=== PATIENT | male | born 1945 | race American Indian/Alaskan Native ===

== ENCOUNTER 2017-08-09 09:05 | Day surgery (SDC) | payer MEDICARE, OTHER ==
[~2017-08-09] VITALS: Ht 170.2 cm; Wt 113.4 kg
[~2017-08-09 09:05] MED LIST: ALLOPURINOL300 MG PO; ASPIRIN325 MG PO; CARVEDILOL6.25 MG PO; CLARITIN10 M2 PO; CLONIDINE HCL0.1 MG PO; CLOPIDOGREL75 MG PO; DERMAFIX113 GM TP; ERGOCALCIF50000 UNIT PO; FEOSOL325 MG PO; FISH OIL 1,2001 EACH PO; FLOMAX0.4 MG PO; JANUVIA50 MG PO; LASIX40 MG PO; LIPITOR80 MG GT; LOSARTAN POTAS100 MG PO; MECLIZINE HCL25 MG PO; NEPHRO-VITE RX1 EACH PO; NIFEDIAC CC90 MG PO; NORCO 5-325 TA1 EACH PO; PANTOPRAZOLE SO40 MG PO; PRILOSEC20 MG PO; RENVELA800 MG PO; SODIUM BICARBO650 MG PO; VITAMIN D32000 UNI1 PO
--- NOTE | 2017-08-09 12:12 | NUR ---
08/09/17 Claudia2 Juliane Asif 1212 REPORT TO GERALDO.
--- NOTE | 2017-08-10 10:53 | OR ---
[facility] [address] [place], [place] [address] Signed DATE OF OPERATION: 08/09/2017 SURGEON: Julieta Hand MD PREOPERATIVE DIAGNOSES: 1. Personal history of Helicobacter pylori-associated gastritis. 2. History of colonic polyps. 3. History of melena, on iron tablets. 4. History of chronic diarrhea, on dialysis. 5. Diverticulosis. 6. Internal hemorrhoids. POSTOPERATIVE DIAGNOSES: 1. Mild gastritis. 2. A 3 mm and 7 mm polyps, proximal right colon. 3. Minimal sigmoid diverticulosis. 4. Moderate internal hemorrhoids. 5. A small indurated prostate gland with a left-sided nodule. PROCEDURES: 1. EGD with CLOtest and biopsies of the duodenum and antrum. 2. Colonoscopy with hot biopsy. ESTIMATED BLOOD LOSS: None. INDICATIONS: Uday is a 72-year-old, obese, diabetic gentleman, who goes to hemodialysis on Mondays, Wednesdays, and Fridays. We saw him in 2012 for his upper and lower endoscopy. He had H. pylori-associated gastritis with a small amount of ulceration. He also had adenomatous polyp in his distal right colon. He talks about melena, but he does take iron tablets. He also has chronic diarrhea. We know he has a little diverticulosis as well as internal hemorrhoids. There is no family history of colon cancer or polyps. He is quite debilitated. He is an ASA 4. He is obese with a heavy full thick neck and significant medical issues as listed in his history and physical. Consequently, we used an anesthesia provider with propofol on our last occasion and we plan on doing that again today. I had met with Uday in the office and I gave him a pamphlet on both upper and lower endoscopy. We reviewed those together and he understands the nature of the 2 tests along with the risks including, but not limited to, gas bloating, crampy abdominal pain, bleeding, perforation, requiring surgery, and missed diagnosis. We also Electronically Signed By: JULIETA HAND MD 08/10/17 1053 PATIENT NAME: UADY ESTES OPERATIVE REPORT DATE OF : 49 PHYSICIAN: JULIETA HAND MD REPORT #: [id number] REPORT IS CONFIDENTIAL AND NOT TO BE RELEASED WITHOUT AUTHORIZATION [address] [address] Signed reviewed the written instructions for the bowel prep, specifically with respect to his medications including his aspirin, Plavix, and diabetic medications. We also reminded him that we would be using an anesthesia provider given his complex medical history. He had expressed understanding and wished to proceed. PROCEDURE NOTE: Uday was taken into our endoscopy suite and placed in a supine semi-recumbent position. He was given IV sedation with propofol per our nurse machine shorthand teacher. The posterior oropharynx was anesthetized with Hurricaine spray. A bite block was utilized for the case. The adult gastroscope was then introduced and advanced out into the third portion of the duodenum under direct visualization of camera without difficulty. We took a duodenal biopsy because the history of diarrhea. In the stomach, he had very mild erythematous changes, so we went ahead and took a biopsy from the antrum as well as for pathologic review as well as for CLOtest. Upon retroflexion of the scope, I did not see a hiatal hernia. There was no gastric or esophageal varices, no ulcerations. The scope was withdrawn up through the area of GE junction, which was compliant without stricture. Very minimal disruption to the Z-line. No Ziegler's mucosa, no distal esophagitis. The middle and upper esophagus were unremarkable. After this, the gas was suctioned out and the gastroscope removed. Uday tolerated the procedure quite well. Uday was then rotated into the left lateral decubitus position. He was maintained on IV sedation with propofol per nurse machine shorthand teacher. A digital rectal exam was performed and he does have a small, but indurated prostate gland. He has a fairly prominent nodule on the left and maybe one superiorly on the right, much smaller on the right. The adult colonoscope was then introduced and advanced up into the cecum under direct visualization of camera without difficulty. His prep was moderate. He had a few areas of liquid particulate stool matter. I could not quite irrigate and suction out completely. We did see the appendiceal orifice in the cecum along with the ileocecal valve. The scope was then slowly withdrawn. He had 2 polyps in the proximal right colon, which we removed with hot biopsy forceps. Then in the sigmoid colon, he had just a few diverticula. They were moderate in size, few in number and scattered about. The rectum was unremarkable. Upon retroflexion of the scope, he has moderate internal hemorrhoid columns. After this, the gas was suctioned out and the colonoscope removed. Uday tolerated the procedure quite well. RECOMMENDATIONS: I will see Uday in my office in a week or 2 for followup. He might review his prostate history and exam with his primary care provider. Electronically Signed By: JULIETA HAND MD 08/10/17 1053 PATIENT NAME: UDAY ESTES OPERATIVE REPORT DATE OF : 49 PHYSICIAN: JULIETA HAND MD REPORT #: [id number] REPORT IS CONFIDENTIAL AND NOT TO BE RELEASED WITHOUT AUTHORIZATION [facility] [address] [address] Signed Julieta Hand MD [facility] /[id number] cc: SEBASTIAN Roy MD Jennifer Leach, MD Saad Tabbara, MD Andrew L Bower, MD Electronically Signed By: JULIETA HAND MD 08/10/17 1053 PATIENT NAME: UDAY ESTES OPERATIVE REPORT DATE OF : 49 PHYSICIAN: JULIETA HAND MD REPORT #: [id number] REPORT IS CONFIDENTIAL AND NOT TO BE RELEASED WITHOUT AUTHORIZATION
== END 2017-08-09 18:00 | disposition home or self-care (01) ==
LOC: DS 09:05
PROVIDERS: Colon & Rectal Surgery
PROC: 0DBK8ZX Excision of Ascending Colon, Via Natural or Artificial Opening Endoscopic, Diagnostic (ICD-10-PCS; 2017-08-09)
PROC: 0DB98ZX Excision of Duodenum, Via Natural or Artificial Opening Endoscopic, Diagnostic (ICD-10-PCS; principal; 2017-08-09 11:15)
PROC: 0DB78ZX Excision of Stomach, Pylorus, Via Natural or Artificial Opening Endoscopic, Diagnostic (ICD-10-PCS; 2017-08-09 11:15)
DX: D12.2 Benign neoplasm of ascending colon (principal); K29.50 Unspecified chronic gastritis without bleeding; K63.89 Other specified diseases of intestine; K57.30 Diverticulosis of large intestine without perforation or abscess without bleeding; N42.89 Other specified disorders of prostate; I25.119 Atherosclerotic heart disease of native coronary artery with unspecified angina pectoris; I10 Essential (primary) hypertension; K80.20 Calculus of gallbladder without cholecystitis without obstruction; K52.9 Noninfective gastroenteritis and colitis, unspecified; N19 Unspecified kidney failure; E11.51 Type 2 diabetes mellitus with diabetic peripheral angiopathy without gangrene; I83.009 Varicose veins of unspecified lower extremity with ulcer of unspecified site; L97.909 Non-pressure chronic ulcer of unspecified part of unspecified lower leg with unspecified severity; M17.9 Osteoarthritis of knee, unspecified; M10.9 Gout, unspecified; Z98.890 Other specified postprocedural states; Z95.5 Presence of coronary angioplasty implant and graft; Z98.42 Cataract extraction status, left eye; Z98.41 Cataract extraction status, right eye; Z88.1 Allergy status to other antibiotic agents; Z88.2 Allergy status to sulfonamides; Z88.8 Allergy status to other drugs, medicaments and biological substances; Z79.82 Long term (current) use of aspirin; Z79.899 Other long term (current) drug therapy
CPT/HCPCS: 86677; 88305; J2704; J7120

== ENCOUNTER 2017-10-11 22:27 | Emergency (ER) | payer MEDICARE, OTHER ==
[~2017-10-11] VITALS: Ht 170.2 cm; Wt 111.1 kg
[2017-10-11] MEDS ORDERED: CEPHALEXIN500 MG PO (23:03)
--- OUTSIDE RECORDS SUMMARY | 2017-10-11 23:10 | XMS | Clinical Summary ---
Demographics + + + | Address | [address] | | | [place] [address] | + + + | Home Phone | | + + + | Preferred Language | Unknown | + + + | Marital Status | Single | + + + | Episcopalian Affiliation | Unknown | + + + | Race | or | + + + | Ethnic Group | Not or | + + + Author + + + | Author | [facility] | + + + | Organization | [facility] | + + + | Address | Unknown | + + + | Phone | Unavailable | + + + Support + + +---------+ + | Name | Relationship | Address | Phone | + + +---------+ + | Evan Webber | DIVYA | Unknown | | + + +---------+ + Care Team Providers + +------+ + | Care Profiler Name | Role | Phone | + +------+ + PP | Unavailable | + +------+ + Source Comments [facility] and [facility] Allergies Not on File Current Medications Not on file Active Problems + + + | Problem | Noted Date | + + + | Proteinuria | 03/27/2008 | + + + Social History + +-------+ +--------+------+ | Tobacco Use | Types | Packs/Day | Years | Date | | | | | Used | | + +-------+ +--------+------+ | Never Assessed | | | | | + +-------+ +--------+------+ + + + | Sex Assigned at | Date Recorded | | | | + + + | Not on file | | + + + Plan of Treatment + + + + + | Health Maintenance | Due Date | Last Done | Comments | + + + + + | INFLUENZA VACCINE | | | | | (FLU SHOT) | 8 | | | + + + + + Results Not on filefrom Last 3 Months"
--- OUTSIDE RECORDS SUMMARY | 2017-10-11 23:10 | XMS | Clinical Summary ---
Demographics + + + | Address | [address] | | | [place] [address] | + + + | Home Phone | | + + + | Preferred Language | Unknown | + + + | Marital Status | Single | + + + | Roman Catholic Affiliation | 1041 | + + + | Race | Unknown | + + + | Ethnic Group | Unknown | + + + Author + + + | Author | [facility] | | | and [place] | + + + | Organization | [facility] | | | and [place] | + + + | Address | Unknown | + + + | Phone | Unavailable | + + + Support + + + + + | Name | Relationship | Address | Phone | + + + + + | Chilo Estes | [place] | [place] | | | | | [address] | | + + + + + Care Team Providers + +------+ + | Care Batt Machine Operator Name | Role | Phone | + +------+ + | Terry Lema PA-C | PP | | + +------+ + Allergies + + + + + + | Active Allergy | Reactions | Severity | Noted | Comments | | | | | Date | | + + + + + + | Amlodipine Besylate | | | | Patient doesn't | | | | | | recall | + + + + + + | Bactrim | Other (See Comments) | | 10/26/19 | Patient doesn't | | | | | 12 | recall | + + + + + + | Irbesartan | Other (See Comments) | | 10/26/19 | Patient doesn't | | | | | 12 | recall | + + + + + + | Isosorbide | Other (See Comments) | | 12/28/19 | Patient doesn't | | Mononitrate | | | 12 | recall | + + + + + + | Pseudoephedrine | Other (See Comments) | | | Made him faint | + + + + + + | Spironolactone | Other (See Comments) | | | Patient doesn't | | | | | | recall | + + + + + + | Telmisartan | Other (See Comments) | | | Patient doesn't | | | | | | recall | + + + + + + Current Medications + + +---------+---------+------+------+-------+ | Prescription | Sig. | Disp. | Refills | Star | End | Statu | | | | | | t | Date | s | | | | | | Date | | | + + +---------+---------+------+------+-------+ | fish oil 1,000 mg | Take 1,000 mg by | | | | | Activ | | capsule | mouth 2 times daily. | | | | | e | + + +---------+---------+------+------+-------+ | omeprazole | Take 20 mg by mouth | | | | | Activ | | (PRILOSEC) 20 mg | every morning | | | | | e | | capsule | (before breakfast). | | | | | | + + +---------+---------+------+------+-------+ | sitaGLIPtin | Take 1 tablet by | 120 | | 11/2 | | Activ | | (JANUVIA) 25 mg | mouth Daily. | tablet | | 0/20 | | e | | tablet | | | | 15 | | | + + +---------+---------+------+------+-------+ | doxercalciferol | Inject 7.5 mcg into | | | 05/0 | | Activ | | (HECTOROL) 2 mcg/mL | the vein Three times | | | 9/20 | | e | | injection | a week. | | | 16 | | | + + +---------+---------+------+------+-------+ | tamsulosin | Take 1 capsule by | 90 | 3 | 09/0 | | Activ | | (FLOMAX) 0.4 mg CAPS | mouth daily (after | capsule | | 8/20 | | e | | | breakfast). | | | 16 | | | + + +---------+---------+------+------+-------+ | cholecalciferol | Take 1 tablet by | 30 | | 01/1 | | Activ | | (VITAMIN D-3) 2000 | mouth Daily. | tablet | | 3/20 | | e | | UNITS TABS | | | | 17 | | | + + +---------+---------+------+------+-------+ | furosemide (LASIX) | Take 2 tablets by | 30 | | 01/1 | | Activ | | 80 mg tablet | mouth every morning. | tablet | | 3/20 | | e | | | | | | 17 | | | + + +---------+---------+------+------+-------+ | allopurinol | Take 300 mg by mouth | | | 11/0 | | Activ | | (ZYLOPRIM) 300 mg | Daily. | | | 03/23 | | e | | tablet | | | | 16 | | | + + +---------+---------+------+------+-------+ | cadexomer iodine | Apply topically | | | | | Activ | | (IODOSORB) 0.9 % gel | Daily as needed for | | | | | e | | | Wound Care. | | | | | | + + +---------+---------+------+------+-------+ | Chlorhexidine | Apply topically. | | | | | Activ | | Gluconate 4 % SOLN | | | | | | e | + + +---------+---------+------+------+-------+ | carvedilol (COREG) | Take 1 tablet by | 60 | 5 | 04/ | | Activ | | 25 mg tablet | mouth 2 times daily | tablet | | 02/20 | | e | | | (with breakfast & | | | 17 | | | | | dinner). | | | | | | + + +---------+---------+------+------+-------+ | atorvaSTATin | Take 0.5 tablets by | 45 | 3 | 05/1 | | Activ | | (LIPITOR) 80 MG | mouth Daily. | tablet | | 6/20 | | e | | tablet | | | | 17 | | | + + +---------+---------+------+------+-------+ | clopidogrel | Take 1 tablet by | 90 | 3 | 05/1 | | Activ | | (PLAVIX) 75 mg | mouth Daily. | tablet | | 6/20 | | e | | tablet | | | | 17 | | | + + +---------+---------+------+------+-------+ | losartan (COZAAR) | Take 1 tablet by | 90 | 3 | 05/2 | | Activ | | 100 MG tablet | mouth Daily. | tablet | | 5/20 | | e | | | | | | 17 | | | + + +---------+---------+------+------+-------+ | b complex-vitamin | Take 1 tablet by | 30 | 11 | 06/2 | | Activ | | c-folic acid | mouth Daily. | tablet | | 0/20 | | e | | (NEPHRO-CLARISSA) tablet | | | | 17 | | | + + +---------+---------+------+------+-------+ | AURYXIA 1 GM 210 | | | | 11/2 | | Activ | | MG(Fe) tablet | | | | 1/20 | | e | | | | | | 17 | | | + + +---------+---------+------+------+-------+ | pantoprazole | | | | 11/0 | | Activ | | (PROTONIX) 40 mg | | | | 6/20 | | e | | tablet | | | | 17 | | | + + +---------+---------+------+------+-------+ | epoetin miracle | Inject 4,400 Units | | | | | Activ | | (EPOGEN,PROCRIT) | under the skin Three | | | | | e | | 3,000 units/mL | times a week. | | | | | | | injection | | | | | | | + + +---------+---------+------+------+-------+ Active Problems + + + | Problem | Noted Date | + + + | End stage renal disease ([facility]) | 02/11/2016 | + + + | DM foot ulcers ([facility]) | 02/11/2016 | + + + | Hyperkalemia | 01/30/2015 | + + + | Right nephrolithiasis | 01/29/2015 | + + + + + | Last Assessment & Plan: Continues to have symptoms, unchanged | | since last night. Discussed with Dr. Hollis, who recommended | | gentle fluids (gave a total of 500 mL this morning) and | | tamsulosin to help the stone pass. Given his minimal chronic | | urine output, not clear that the stone will pass, and will plan | | to reassess if no improvement by tomorrow. No evidence of acute | | infection. | + + + + + | Diabetic foot ulcer (HCC) | 07/19/2014 | + + + + + | Last Assessment & Plan: Appear chronic, but does need to care | | for them better given his diabetic neuropathy. Wound care | | consult today. | + + + + + | Essential hypertension with goal blood pressure less than 130/80 | 05/21/2013 | + + + | End stage renal disease (HCC) | 04/26/2013 | + + + + + | Overview: ESRD due to diabetic nephropathy. On hemodialysis. | | Access: Left brachial-cephalic AVF. Last Assessment & Plan: HD | | today for chronic ESRD. Hyperkalemic at 6.0, getting 2 K+ bath | | today. | | Last Assessment & Plan: HD today for chronic ESRD. Hyperkalemic at 6.0, getting 2 K+ b ath today. | + + + + + | Coronary artery disease involving seneca coronary artery of | 04/26/2013 | | seneca heart without angina pectoris | | + + + + + | Overview: History of PTCA x 2 stents. Stress test 08/12/2016 | | shows persantine EKG is negative, abnormal persantine sestamibi | | myocardial perfusion study with a medium to large size, fixed | | defect of a mid anterior, distal anterolateral, apex and the | | entire inferior wall, this suggests a medium to large size | | myocardial scar of the dominant RCA and mid LAD territories, | | gated SPECT reveals a thinning and akinesis of the entire | | inferior wall and anteroapical, left ventricular systolic | | function is moderately decreased, LVEF by gated SPECT is 43 %. | + + + + + | SECONDARY HYPERPARATHYROIDISM | 10/26/2011 | + + + | ANEMIA IN CHRONIC KIDNEY DISEASE | 10/26/2011 | + + + + + | Overview: ICD-10 Record update | | Last Assessment & Plan: Usual care. | + + + + + | HYPERPLASIA PROSTATE UNS W/UR OBST and LARISA LUTS | 08/05/2011 | + + + | DM type 2 (diabetes mellitus, type 2) ([facility]) | | + + + + + | Last Assessment & Plan: Continue sitagliptin, sliding scale. | | <150 thus far. | + + + +---+ | AVIS (obstructive sleep apnea) | | + +---+ + + | Last Assessment & Plan: Per history. | + + +------+---+ | Gout | | +------+---+ + + | Last Assessment & Plan: On full dose allopurinol. | + + + +---+ | Diabetic peripheral neuropathy (HCC) | | + +---+ | Diabetic retinopathy (HCC) | | + +---+ | GERD (gastroesophageal reflux disease) | | + +---+ + + | Last Assessment & Plan: History on PPI. | + + + +---+ | Congestive heart failure (HCC) | | + +---+ + + | Overview: Echocardiogram 09/08/17 shows Left ventricle is | | normal in size with systolic function appearing at the lower | | limit of normal. There is suboptimal endocardial resolution and | | poor echocardiographic windows, especially apically and | | subcostal. There is mildconcentric LVH noted. LVEF is estimated | | in the range of 50-55%. Structurally normal tricuspid valve with | | moderate insufficiency and peak velocity consistent with RVSP | | 64-69 mmHg. Biatrial enlargement, left greater than right. | | Compared with patient's prior study of 2016, pulmonary pressures | | are estimated slightly higher, otherwise no significant changes | | are noted.Echocardiogram 09/16/2015 shows mildly dilated left | | ventricle with mild concentric left ventricular hypertrophy with | | mild systolic dysfunction with ejection fraction probably around | | 40%-45%, definity contrast may be considered for better | | evaluation of the left ventricular function and wall motion | | abnormalities, mildly dilated aorta to 40 mm . Jimmy Lewis | | MD BookerEchocardiogram 08/10/2016 shows mild left atrial | | dilatation, normal left ventricular size with a mild concentric | | left ventricular hypertrophy, left ventricular systolic function | | is low-normal. LVEF is 50-55%, grade 1 left ventricular diastolic | | dysfunction, mild mitral valve regurgitation, mild aortic valve | | insufficiency, [id number] tricuspid valve regurgitation, | | moderate pulmonary hypertension with a peak systolic pressure of | | 50-55 mmHg, mild aortic root dilatation measuring 4.2 cm in | | diameter, normal IVC with less than 50% collapse. Last | | Assessment & Plan: Monitor fluid balance closely. | + + Resolved Problems + + + + | Problem | Noted | Resolved | | | Date | Date | + + + + | Fever | 02/11/20 | | | | 16 | 7 | + + + + | SIRS (systemic inflammatory response syndrome) (HCC) | 02/11/20 | | | | 16 | 7 | + + + + | CAD | 08/24/19 | | | | 12 | 3 | + + + + | Hypertension | | | | | | 3 | + + + + | CHRONIC KIDNEY DISEASE STAGE IV (SEVERE) | | | | | | 3 | + + + + Encounters +--------+ + + + + | Date | Type | Specialty | Care Team | Description | +--------+ + + + + | 09/15/ | Office | | Isidra, | Chronic systolic | | 2017 | Visit | | JOE Lynch | congestive heart | | | | | | failure (HCC) | | | | | | (Primary Dx); | | | | | | Coronary artery | | | | | | disease involving | | | | | | seneca coronary | | | | | | artery of seneca | | | | | | heart without angina | | | | | | pectoris; Essential | | | | | | hypertension with | | | | | | goal blood pressure | | | | | | less than 130/80 | +--------+ + + + + | 09/08/ | Hospital | | Isidra, | Chronic systolic | | 2018 | Encounter | | JOE Lynch | congestive heart | | | | | Alejandro Troncoso, | failure (HCC) | | | | | Technologist | | +--------+ + + + + | 09/02/ | Telephone | | Isidra | [place] | | 2017 | | | JOE Lynch | | +--------+ + + + + | 08/29/ | Documentati | | Luciana Yoder | | | 2017 | on | | M, DO | | +--------+ + + + + | 08/10/ | Abstract | | Luciana Yoder | | | 2017 | | | M, DO | | +--------+ + + + + | 08/02/ | Ancillary | | Provider, | | | 2018 | Orders | | MD Jonas | | +--------+ + + + + from Last 3 Months Family History + + +------+ + | Medical History | Relation | Name | Comments | + + +------+ + | Diabetes | Father | 70 | | + + +------+ + | Diabetes | Sister | | | + + +------+ + + +------+ + + | Relation | Name | Status | Comments | + +------+ + + | Father | 70 | | | + +------+ + + | Mother | 74 | | | + +------+ + + | Sister | | | | + +------+ + + Social History + + + +--------+------+ | Tobacco Use | Types | Packs/Day | Years | Date | | | | | Used | | + + + +--------+------+ | Never Smoker | Cigarettes | | | | + + + +--------+------+ + +---+---+---+ | Smokeless Tobacco: | | | | | Never Used | | | | + +---+---+---+ + + +---------+ + | Alcohol Use | Drinks/We | oz/Week | Comments | | | ek | | | + + +---------+ + | No | 0 | 0.0 | | | | Standard | | | | | drinks or | | | | | | | | | | equivalen | | | | | t | | | + + +---------+ + + + + | Sex Assigned at | Date Recorded | | | | + + + | Not on file | | + + + Last Filed Vital Signs + + + + | Vital Sign | Reading | Time Taken | + + + + | Blood Pressure | 160/70 | 09/15/2017946 PDT | + + + + | Pulse | 60 | 09/15/2017946 PDT | + + + + | Temperature | 36.2 C (97.2 F) | 08/29/2017 1555 PST | + + + + | Respiratory Rate | 12 | 09/15/2017946 PDT | + + + + | Oxygen Saturation | 96% | 02/11/2016 1515 PDT | + + + + | Inhaled Oxygen | - | - | | Concentration | | | + + + + | Weight | 113.5 kg (250 lb 3.6 | 09/15/2017946 PDT | | | oz) | | + + + + | Height | 170.2 cm (5' 7") | 09/15/2017946 PDT | + + + + | Body Mass Index | 39.19 | 09/15/2017946 PDT | + + + + Plan of Treatment +--------+---------+ + + + | Date | Type | Specialty | Care Team | Description | +--------+---------+ + + + | 03/21/ | Office | | Isidra, | | | 2017 | Visit | | JOE Lynch [address] | | | | | | [place], | | | | | | [place] [address] | | | | | | [phone] | | | | | | | | +--------+---------+ + + + + + + + + | Health Maintenance | Due Date | Last Done | Comments | + + + + + | Hepatitis C | | | | | Screening | 7 | | | + + + + + | Diabetic Eye Exam | | | | | (Annually) | 5 | | | + + + + + | Diabetic Foot Exam | | | | | | 5 | | | + + + + + | Vaccine: | | | | | Dtap/Tdap/Td (1 - | 6 | | | | Tdap) | | | | + + + + + | COLON CANCER | | | | | SCREENING | 7 | | | | (COLONOSCOPY EVERY | | | | | 10 YEARS 50-75) | | | | + + + + + | Vaccine: Zoster (#1) | | | | | | 7 | | | + + + + + | Vaccine: | | | | | Pneumococcal 65+ | 2 | | | | High/Highest Risk (1 | | | | | of 2 - PCV13) | | | | + + + + + | Hemoglobin A1c Q3 | | 01/01/2013, 07/01/2012 | | | Months | 3 | | | + + + + + | Vaccine: Influenza | | | | | (Season Ended) | 8 | | | + + + + + Procedures + +--------+ + + + | Procedure Name | Priori | Date/Time | Associated Diagnosis | Comments | | | ty | | | | + +--------+ + + + | DIAGNOSTIC REPORT - | | 08/09/2017 | | Results for this | | EXTERNAL SCAN | | 0000 PST | | procedure are in the | | | | | | results section. | + +--------+ + + + from Last 3 Months Results ECHO Complete (09/08/2017 1027) + +-------+ + | Component | Value | Ref Range | + +-------+ + | LVEF-TTE | 35 | | | TRANSTHORACIC ECHO | | | + +-------+ + + + | Narrative | + + | Transthoracic Echocardiography Report (TTE) Demographics Patient | | Name AKBAR FRYE Room Number [place] | | Patient [id number] Date of Study 09/08/2017 | | Number Visit Number [id number] Accession | | [id number] Referring Physician DANIEL LYNCH Number Date of | | 1945 [employer] [place] | | Age 72 | | year(s) Interpreting DOLLY BILLS | | | | Digital Content Manager ALEXEI | | | | ALEXEI ALBERTO MD | | 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 Procedure date | | Date: 09/08/2017Start: 09:55 AM Technical Quality: Limited visualizationStudy | | Location: Echo Lab Indications: Heart Failure, Chronic Systolic 428.22/I50.22. Patient | | Status: Routine Height: 67 inchesWeight: 246 poundsBSA: 2.21 m^2BMI: 38.53 kg/m^2 | | Rhythm: Normal Sinus RhythmHR: 72 bpm Conclusions Summary Left ventricle is normal | | in size with systolic function appearing at the lower limit of normal. There is | | suboptimal endocardial resolution and poor echocardiographic windows, especially | | apically and subcostal. There is mild concentric LVH noted. LVEF is estimated in the | | range of 50-55%. Structurally normal tricuspid valve with moderate insufficiency and | | peak velocity consistent with RVSP 64-69 mmHg. Biatrial enlargement, left greater than | | right. Compared with patient's prior study of 2016, pulmonary pressures are estimated | | slightly higher. Otherwise no significant changes are noted. Signature | | | | | | PM | | Findings Mitral Valve Mitral valve is mildly thickened without significant | | insufficiency. Aortic Valve Aortic valve is a sclerotic probable trileaflet valve with | | good systolic excursion. Tricuspid Valve Structurally normal tricuspid valve with | | moderate insufficiency and peak velocity consistent with RVSP 64-69 mmHg. Pulmonic | | Valve Structurally normal pulmonic valve without significant stenosis or | | regurgitation. Left Atrium Left atrium is moderate to severely enlarged. Left | | Ventricle Left ventricle is normal in size with systolic function appearing at the | | lower limit of normal. There is suboptimal endocardial resolution and poor | | echocardiographic windows, especially apically and subcostal. There is mild concentric | | LVH noted. LVEF is estimated in the range of 50-55%. Right Atrium Right atrium is | | moderately enlarged. Right Ventricle Normal right ventricular size. Right ventricle | | global systolic function is normal. TAPSE = 2.9 cm. Pericardial Effusion No evidence | | of pericardial effusion. Pleural Effusion No evidence of pleural effusion. | | Miscellaneous Aortic root is mildly enlarged. The IVC appears normal size. IVC | | respiratory change in dimension > 50%. Valves Mitral Valve Peak E-Wave: | | 1.19 m/s Peak A-Wave: 0.96 m/s Tissue Doppler Septal e' Velocity: 0.06 | | m/s Lateral E/e' Ratio0.04 Septal E/e' Ratio:20.59 Aortic | | Valve Tricuspid Valve TR Velocity: 3.85 m/s LVOT Peak Velocity: | | 0.97 m/s LVOT Diameter: 2.63 cm Structures Left Atrium LA A/P Dimension: | | 6.22 cm LA Area: 36.12 cm^2 LA Vol/BSA Index: | | 76 mL/m^2 LA Volume: 168.13 ml | | | | EF [id number]% Left Ventricle Diastolic Dimension: 6.71 | | cm Systolic Dimension: 4.76 cm Septum Diastolic: 1.64 cm PW | | Diastolic: 1.2 cm EF Calculated: 35% Miscellaneous Aorta Aortic Root: | | 3.78 cm Ascending Aorta: 3.87 cm | + + + + | Procedure Note | + + | Suraj, Rad Results In - 09/08/2017 1241 PST Transthoracic Echocardiography Report (TTE) | | | | Demographics | | | | Patient Name AKBAR FRYE Room Number | | [place] | | | | Patient [id number] Date of Study 09/08/2017 | | Number | | | | Visit Number [id number] | | | | Referring Physician DANIEL LYNCH | | Number | | | | Date of 1945 [employer] [address] [place] | | | | Age 72 year(s) Interpreting DOLLY BILLS | | Digital Content Manager ALEXEI | | ALEXEI ALBERTO MD | | | | 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 | | | | Procedure date | | Date: 09/08/2017Start: 09:55 AM | | | | Technical Quality: Limited visualizationStudy Location: Echo Lab | | Indications: Heart Failure, Chronic Systolic 428.22/I50.22. | | Patient Status: Routine | | Height: 67 inchesWeight: 246 poundsBSA: 2.21 m^2BMI: 38.53 kg/m^2 | | Rhythm: Normal Sinus RhythmHR: 72 bpm | | | | Conclusions | | Summary | | Left ventricle is normal in size with systolic function appearing at the | | lower limit of normal. There is suboptimal endocardial resolution and poor | | echocardiographic windows, especially apically and subcostal. There is mild | | concentric LVH noted. LVEF is estimated in the range of 50-55%. | | Structurally normal tricuspid valve with moderate insufficiency and peak | | velocity consistent with RVSP 64-69 mmHg. | | Biatrial enlargement, left greater than right. | | Compared with patient's prior study of 2017, pulmonary pressures are | | estimated slightly higher. Otherwise no significant changes are noted. | | | | Signature | | | | Electronically signed by ALEXEI ALBERTO MD(Interpreting physician) on | | 09/08/2017 12:41 PM | | | | | | Findings | | Mitral Valve | | Mitral valve is mildly thickened without significant insufficiency. | | Aortic Valve | | Aortic valve is a sclerotic probable trileaflet valve with good systolic | | excursion. | | Tricuspid Valve | | Structurally normal tricuspid valve with moderate insufficiency and peak | | velocity consistent with RVSP 64-69 mmHg. | | Pulmonic Valve | | Structurally normal pulmonic valve without significant stenosis or | | regurgitation. | | Left Atrium | | Left atrium is moderate to severely enlarged. | | Left Ventricle | | Left ventricle is normal in size with systolic function appearing at the | | lower limit of normal. There is suboptimal endocardial resolution and poor | | echocardiographic windows, especially apically and subcostal. There is mild | | concentric LVH noted. LVEF is estimated in the range of 50-55%. | | Right Atrium | | Right atrium is moderately enlarged. | | Right Ventricle | | Normal right ventricular size. | | Right ventricle global systolic function is normal. | | TAPSE = 2.9 cm. | | Pericardial Effusion | | No evidence of pericardial effusion. | | Pleural Effusion | | No evidence of pleural effusion. | | Miscellaneous | | Aortic root is mildly enlarged. | | The IVC appears normal size. | | IVC respiratory change in dimension > 50%. | | | | Valves | | | | Mitral Valve | | | | Peak E-Wave: 1.19 m/s | | Peak A-Wave: 0.96 m/s | | | | Tissue Doppler | | | | Septal e' Velocity: 0.06 m/s Lateral E/e' Ratio0.04 | | Septal E/e' Ratio:20.59 | | | | Aortic Valve | | | | Tricuspid Valve | | | | TR Velocity: 3.85 m/s | | | | LVOT | | | | Peak Velocity: 0.97 m/s | | LVOT Diameter: 2.63 cm | | | | Structures | | | | Left Atrium | | | | LA A/P Dimension: 6.22 cm LA Area: 36.12 cm^2 | | LA Vol/BSA Index: 76 mL/m^2 LA Volume: 168.13 ml | | EF Jsoodpdtt30% | | | | Left Ventricle | | | | Diastolic Dimension: 6.71 cm Systolic Dimension: 4.76 cm | | Septum Diastolic: 1.64 cm | | PW Diastolic: 1.2 cm | | EF Calculated: 35% | | | | Miscellaneous | | | | Aorta | | | | Aortic Root: 3.78 cm | | Ascending Aorta: 3.87 cm | + + NONINVASIVE VASC IMAGING - EXTERNAL SCAN (09/06/2017) + + | Narrative | + + | Ordered by an unspecified provider. | + + DIAGNOSTIC REPORT - EXTERNAL SCAN (08/09/2017) + + | Narrative | + + | Ordered by an unspecified provider. | + + from Last 3 Months Insurance + +--------+ +--------+ +---------+ | Payer | Benefi | Subscriber | Type | Phone | Address | | | t Plan | ID | | | | | | / | | | | | | | Group | | | | | + +--------+ +--------+ +---------+ | MEDICARE | MEDICA | xxxxxxxxxx | Medica | [phone] | | | RE | | re | [phone] | | | | PART A | | | | | | | AND B | | | | | + +--------+ +--------+ +---------+ | MEDICAID [place] | MEDICA | xxxxxxxx | Medica | [phone] | | | [place] | | id | [phone] | | | | PLUS | | | | | + +--------+ +--------+ +---------+ | [employer] | IHS | xxxxxxxxx | Indemn | | | | SERVICE | YELLOW | | ity | | | | | [place] | | | | | + +--------+ +--------+ +---------+ + +--------+ +--------+ + + | Guarantor Name | Accoun | Relation to | Date | Phone | Billing Address | | | t Type | Patient | of | | | | | | | | | | + +--------+ +--------+ + + | KENTRELL ESTES | Person | Self [birth year] Home: | [address] | | [place] | yair/Ludwig | | 1945 | [phone] [place] | | | [place] | | [phone] | + +--------+ +--------+ + +
--- OUTSIDE RECORDS SUMMARY | 2017-10-11 23:10 | XMS | Encounter Summary ---
Demographics + + + | Address | [address] | | | [place] [address] | + + + | Home Phone | | + + + | Preferred Language | Unknown | + + + | Marital Status | Single | + + + | Sabianism Affiliation | 1041 | + + + | Race | Unknown | + + + | Ethnic Group | Unknown | + + + Author + + + | Author | [facility] | | | and [place] | + + + | Organization | [facility] | | | and [place] | + + + | Address | Unknown | + + + | Phone | Unavailable | + + + Support + + + + + | Name | Relationship | Address | Phone | + + + + + | Chilo Webber | [address] | [place] | | | | | [address] | | + + + + + Care Team Providers + +------+ + | Care Hpl[facility] Chemist Name | Role | Phone | + +------+ + | Terry Lema PA-C PCP | | + +------+ + Reason for Referral Diagnostic/Screening (Routine) +--------+--------+ + + + + | Status | Reason | Specialty | Diagnoses / | Referred By | Referred To | | | | | Procedures | Contact | Contact | +--------+--------+ + + + + | Closed | | Radiology | Diagnoses | | [facility] | | | | | Chronic | [place], | [address] | | | | | systolic | [place], [employer]ER | Institute, | | | | | congestive | [address] | [place] | | | | | heart | [place] | [address] | | | | | failure | [place], | Phone: | | | | | (HCC) | [place] | [phone] | | | | | Procedures | [address] | Fax: | | | | | ECHO | Phone: | [phone] | | | | | [facility] [place] | [phone] | | | | | | ECHO HEART | Fax: | | | | | | [place] | [phone] | | | | | | [address] | | | | | | | [facility] | | | | | | | ECHO HEART | | | | | | | [place] | | | | | | | MP[place], W/O | | | | | | | DOPPLER | | | +--------+--------+ + + + + Diagnostic/Screening (Routine) +--------+--------+ + + + + | Status | Reason | Specialty | Diagnoses / | Referred By | Referred To | | | | | Procedures | Contact | Contact | +--------+--------+ + + + + | Closed | | Radiology | Diagnoses | | [facility] | | | | | Chronic | [place], | [address] | | | | | systolic | [place], [employer] | Institute, | | | | | congestive | [address] | [place] | | | | | heart | [place] | [address] | | | | | failure | [place], | Phone: | | | | | (HCC) | [place] | [phone] | | | | | Procedures | [address] | Fax: | | | | | ECHO | Phone: | [phone] | | | | | [facility] [place] | [phone] | | | | | | ECHO HEART | Fax: | | | | | | [place] | [phone] | | | | | | [address] | | | | | | | [facility] | | | | | | | ECHO HEART | | | | | | | [place] | | | | | | | MP[place], W/O | | | | | | | DOPPLER | | | +--------+--------+ + + + + Reason for Visit Diagnostic/Screening (Routine) +--------+--------+ + + + + | Status | Reason | Specialty | Diagnoses / | Referred By | Referred To | | | | | Procedures | Contact | Contact | +--------+--------+ + + + + | Closed | | Radiology | Diagnoses | | [facility] | | | | | Chronic | [place], | [address] | | | | | systolic | JEM LynchP | Institute, | | | | | congestive | [address] | [place] | | | | | heart | [place] | [address] | | | | | failure | [place], | Phone: | | | | | (HCC) | [place] | [phone] | | | | | Procedures | [address] | Fax: | | | | | ECHO | Phone: | [phone] | | | | | [facility] [place] | [phone] | | | | | | ECHO HEART | Fax: | | | | | | [place] | [phone] | | | | | | [address] | | | | | | | [facility] | | | | | | | ECHO HEART | | | | | | | [place] | | | | | | | MPLETE, W/O | | | | | | | DOPPLER | | | +--------+--------+ + + + + Encounter Details +--------+ + + + + | Date | Type | Department | Care Team | Description | +--------+ + + + + | 09/08/ | Hospital | [facility] | [place], | Chronic systolic | | 2018 | Encounter | [facility] [address] | [place], [employer] [address] | congestive heart | | | | [place] | [place], | failure (HCC) | | | | [place] [address] | [place] [address] | | | | | [phone] | [phone] | | | | | | | | | | | | Alejandro Troncoso, | | | | | | Technologist | | +--------+ + + + + Social History + + + [...] on file | | + + + as of this encounter Medications at Time of Discharge + + +---------+---------+ + + | Medication | Sig. | Disp. | Refills | Start | End Date | | | | | | Date | | + + +---------+---------+ + + | allopurinol | Take 300 mg by mouth | | | 05/12/20 | | | (ZYLOPRIM) 300 mg | Daily. | | | 16 | | | tablet | | | | | | + + +---------+---------+ + + | atorvaSTATin | Take 0.5 tablets by | 45 | 3 | 11/17/19 | | | (LIPITOR) 80 MG | mouth Daily. | tablet | | 17 | | | tablet | | | | | | + + +---------+---------+ + + | AURYXIA 1 GM 210 | | | | 05/24/20 | | | MG(Fe) tablet | | | | 17 | | + + +---------+---------+ + + | b complex-vitamin | Take 1 tablet by | 30 | 11 | 12/22/19 | | | c-folic acid | mouth Daily. | tablet | | 17 | | | (NEPHRO-CLARISSA) tablet | | | | | | + + +---------+---------+ + + | cadexomer iodine | Apply topically | | | | | | (IODOSORB) 0.9 % gel | Daily as needed for | | | | | | | Wound Care. | | | | | + + +---------+---------+ + + | carvedilol (COREG) | Take 1 tablet by | 60 | 5 | 10/20/19 | | | 25 mg tablet | mouth 2 times daily | tablet | | 17 | | | | (with breakfast & | | | | | | | dinner). | | | | | + + +---------+---------+ + + | Chlorhexidine | Apply topically. | | | | | | Gluconate 4 % SOLN | | | | | | + + +---------+---------+ + + | cholecalciferol | Take 1 tablet by | 30 | | 07/16/19 | | | (VITAMIN D-3) 2000 | mouth Daily. | tablet | | 17 | | | UNITS TABS | | | | | | + + +---------+---------+ + + | clopidogrel | Take 1 tablet by | 90 | 3 | 11/17/19 | | | (PLAVIX) 75 mg | mouth Daily. | tablet | | 17 | | | tablet | | | | | | + + +---------+---------+ + + | doxercalciferol | Inject 7.5 mcg into | | | 11/10/19 | | | (HECTOROL) 2 mcg/mL | the vein Three times | | | 16 | | | injection | a week. | | | | | + + +---------+---------+ + + | epoetin miracle | Inject 4,400 Units | | | | | | (EPOGEN,PROCRIT) | under the skin Three | | | | | | 3,000 units/mL | times a week. | | | | | | injection | | | | | | + + +---------+---------+ + + | fish oil 1,000 mg | Take 1,000 mg by | | | | | | capsule | mouth 2 times daily. | | | | | + + +---------+---------+ + + | furosemide (LASIX) | Take 2 tablets by | 30 | | 07/16/19 | | | 80 mg tablet | mouth every morning. | tablet | | 17 | | + + +---------+---------+ + + | losartan (COZAAR) | Take 1 tablet by | 90 | 3 | 11/26/19 | | | 100 MG tablet | mouth Daily. | tablet | | 17 | | + + +---------+---------+ + + | omeprazole | Take 20 mg by mouth | | | | | | (PRILOSEC) 20 mg | every morning | | | | | | capsule | (before breakfast). | | | | | + + +---------+---------+ + + | pantoprazole | | | | 05/09/20 | | | (PROTONIX) 40 mg | | | | 17 | | | tablet | | | | | | + + +---------+---------+ + + | sitaGLIPtin | Take 1 tablet by | 120 | | 05/23/20 | | | (JANUVIA) 25 mg | mouth Daily. | tablet | | 15 | | | tablet | | | | | | + + +---------+---------+ + + | tamsulosin | Take 1 capsule by | 90 | 3 | 03/11/20 | | | (FLOMAX) 0.4 mg CAPS | mouth daily (after | capsule | | 16 | | | | breakfast). | | | | | + + +---------+---------+ + + as of this encounter Plan of Treatment +--------+---------+ + + + | Date | Type | Specialty | Care Team | Description | +--------+---------+ + + + | 03/21/ | Office | Cardiology | [place], | | | 2017 | Visit | | JOE [facility] [address] | | | | | | [place], | | | | | | [place] [address] | | | | | | [phone] | | | | | | | | +--------+---------+ + + + as of this encounter Results ECHO Complete (09/08/2017 1027) + +-------+ + | Component | Value | Ref Range | + +-------+ + | LVEF-TTE | 35 | | | TRANSTHORACIC ECHO | | | + +-------+ + + + | Narrative | + + | Transthoracic Echocardiography Report (TTE) Demographics Patient | | Name AKBAR FRYE Room Number MOISE | | Patient [id number] Date of Study 09/08/2017 | | Number Visit Number [id number] Accession | | [id number] Referring Physician DANIEL LYNCH Number Date of | | 1945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 Aba Hurst | | Age 72 | | year(s) Interpreting DOLLY BILLS | | | | Financial Aids Officer ALEXEI | | | | ALEXEI ALBERTO MD | | Gender Male 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 Compared with patient's prior study of 2017, pulmonary pressures are estimated | | slightly [...] 168.13 ml | | | | EF Thowbdxfs01% Left Ventricle Diastolic Dimension: 6.71 | | cm Systolic Dimension: 4.76 cm Septum Diastolic: 1.64 cm PW | | Diastolic: 1.2 cm EF Calculated: 35% Miscellaneous Aorta Aortic Root: | | 3.78 cm Ascending Aorta: 3.87 cm | + + + + | Procedure Note | + + | Braeden Ruelas Results In - 09/08/2017 1241 PST Transthoracic Echocardiography Report (TTE) | | | | Demographics | | | | Patient Name AKBAR FRYE Room Number | | MOISE | | | | Patient [id number] Date of Study 09/08/2017 | | Number | | | | Visit Number [id number] | | | | Referring Physician DANIEL LYNCH | | Number | | | | Date of 1945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 Aba Encisoery | | | | Age 72 year(s) Interpreting DOLLY BILLS | | Financial Aids Officer ALEXEI | | ALEXEI ALBERTO MD | | | | Gender Male 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
--- OUTSIDE RECORDS SUMMARY | 2017-10-11 23:10 | XMS | Encounter Summary ---
Demographics + + + | Address | [address] | | | [place] [address] | + + + | Home Phone | | + + + | Preferred Language | Unknown | + + + | Marital Status | Single | + + + | [employer] Affiliation | [id number] | + + + | Race | Unknown | + + + | Ethnic Group | Unknown | + + + Author + + + | Author | [facility] | | | and [place] | + + + | Organization | [facility] | | | and [place] | + + + | Address | Unknown | + + + | Phone | Unavailable | + + + Support + + + + + | Name | Relationship | Address | Phone | + + + + + | Chilo Webber | [address] | [place] | | | | | [id number] | | + + + + + Care Team Providers + +------+ + | Care Humanities And Languages Professor Name | Role | Phone | + +------+ + | Terry Lema PA-C PCP | | + +------+ + Reason for Visit + + + | Reason | Comments | + + + | Follow-up | | + + + | Carotid Artery | | | Disease | | + + + | Congestive Heart | | | Failure | | + + + | Hypertension | | + + + Follow Up (Routine) +--------+--------+ + + + + | Status | Reason | Specialty | Diagnoses / | Referred By | Referred To | | | | | Procedures | Contact | Contact | +--------+--------+ + + + + | Closed | | Cardiology | Diagnoses | Torey, | Kelly, | | | | | Heart | Terry Patton, | MD Shruthi | | | | | failure, | PA-C [id number] | [address] [place] [address] | | | | | unspecified | [facility] | [address] | | | | | (HCC) | WAY | [place], | | | | | [address] | [place], | [place] [address] | | | | | tic heart | [place] [address] | Phone: | | | | | disease of | Phone: | [phone] | | | | | [place] | [phone] | Fax: | | | | | coronary | Fax: | [phone] | | | | | artery | [phone] | | | | | | without | | | | | | | angina | | | | | | | pectoris | | | | | | | Essential | | | | | | | (primary) | | | | | | | hypertension | | | | | | | Procedures | | | | | | | FUP 08/17> | | | | | | | DOS 09/15> | | | | | | | PEND YH | | | +--------+--------+ + + + + Encounter Details +--------+---------+ + + + | Date | Type | Department | Care Team | Description | +--------+---------+ + + + | 09/15/ | Office | [facility] | [place], | Chronic systolic | | 2018 | Visit | CARDIOLOGY [address] | JOE [address] | congestive heart | | | | [place], | [place], | failure (HCC) | | | | [place] [address] | [place] [address] | (Primary Dx); | | | | [phone] | [phone] | Coronary artery | | | | | | disease involving | | | | | | [place] coronary | | | | | | artery of [place] | | | | | | heart without angina | | | | | | pectoris; Essential | | | | | | hypertension with | | | | | | goal blood pressure | | | | | | less than 130/80 | +--------+---------+ + + + Social History + + [...] + + + as of this encounter Last Filed Vital Signs + + + + | Vital Sign | Reading | Time Taken | + + + + | Blood Pressure | 160/70 | 09/15/2017946 PDT | + + + + | Pulse | 60 | 09/15/2017946 PDT | + + + + | Temperature | - | - | + + + + | Respiratory Rate | 12 | 09/15/2017946 PDT | + + + + | Oxygen Saturation | - | - | + + + + | Inhaled [...] 09/15/2017946 PDT | + + + + in this encounter Progress Notes Janet Miner ARNP - 09/15/2017 1000 PDTFormatting of this note may be different from the original. PATIENT NAME: Kentrell Webber : 1945: AGE: 72 y.o. PRIMARY CARE: Terry Lema PA-C OUTPATIENT FOLLOW UP VISIT Date of Service: 09/15/2017 HISTORY OF PRESENT ILLNESS: Kentrell Webber is a 72 y.o. male with a history of coronary artery disease involvi ng [place] coronary artery of [place] heart without angina pectoris, ischemic cardiomyopathy s tatus post an NSTEMI on 04/18/15, with prior PCI with ROXI 3, end stage renal disease sec ondary to diabetic nephropathy , congestive heart failure, essential hypertension, mixed hyp erlipidemia. He was last seen 06/02/17 at which time he has been given instructions (recommended also by nephrology) to take his losartan and carvedilol only 25 mg after dialysis and take the ot her carvedilol 25 mg at night, he has been told to check blood pressure and pulse twice navjot y for two weeks and return the log to our office, In the meantime he will stay off spironol actone and we will reevaluate if we need to restart for heart failure, he was scheduled for echocardiogram to evaluate ventricular function in 2 months, he will follow-up in 3 months or sooner if any concerns. He has been advised to call our office if he develops any furth er hypotension. Since that time, he has been doing "okay". He has had a fair energy level. He tries to sta y active. He uses the stationary bike 12 minutes twice a day. He will try to increase it to the 15 minutes. He has not had any chest pain or discomfort at rest or with exertion. He has not noticed shortness of breath. He has not had any lightheadedness or dizziness. He has not noticed palpitations. He has not had leg swelling. He sleeps on 1 pillow at night without any shortness of breath. He has been having diarrhea. MEDICAL, SURGICAL, AND PERSONAL HISTORY Past Medical, Surgical, Family, and Social History are reviewed in EPIC. CURRENT PROBLEMS Patient Active Problem List Diagnosis HYPERPLASIA PROSTATE UNS W/UR OBST and OTH LUTS SECONDARY HYPERPARATHYROIDISM ANEMIA IN CHRONIC KIDNEY DISEASE DM type 2 (diabetes mellitus, type 2) AVIS (obstructive sleep apnea) Gout Diabetic peripheral neuropathy Diabetic retinopathy GERD (gastroesophageal reflux disease) Congestive heart failure End stage renal disease Coronary artery disease involving [place] coronary artery of [place] heart without angina pectoris Essential hypertension with goal blood pressure less than 130/80 Diabetic foot ulcer Right nephrolithiasis Hyperkalemia End stage renal disease DM foot ulcers CURRENT MEDICATIONS Current Outpatient Prescriptions Medication Sig Dispense Refill allopurinol (ZYLOPRIM) 300 mg tablet Take 300 mg by mouth Daily. atorvaSTATin (LIPITOR) 80 MG tablet Take 0.5 tablets by mouth Daily. 45 tablet 3 AURYXIA 1 GM 210 MG(Fe) tablet b complex-vitamin c-folic acid (NEPHRO-CLARISSA) tablet Take 1 tablet by mouth Daily. 30 ta blet 11 cadexomer iodine (IODOSORB) 0.9 % gel Apply topically Daily as needed for Wound Care. carvedilol (COREG) 25 mg tablet Take 1 tablet by mouth 2 times daily (with breakfast & dinner). 60 tablet 5 Chlorhexidine Gluconate 4 % SOLN Apply topically. cholecalciferol (VITAMIN D-3) 2000 UNITS TABS Take 1 tablet by mouth Daily. 30 tablet clopidogrel (PLAVIX) 75 mg tablet Take 1 tablet by mouth Daily. 90 tablet 3 doxercalciferol (HECTOROL) 2 mcg/mL injection Inject 7.5 mcg into the vein Three times a week. epoetin miracle (EPOGEN,PROCRIT) 3,000 units/mL injection Inject 4,400 Units under the ski n Three times a week. fish oil 1,000 mg capsule Take 1,000 mg by mouth 2 times daily. furosemide (LASIX) 80 mg tablet Take 2 tablets by mouth every morning. 30 tablet losartan (COZAAR) 100 MG tablet Take 1 tablet by mouth Daily. 90 tablet 3 omeprazole (PRILOSEC) 20 mg capsule Take 20 mg by mouth every morning (before breakfast ). pantoprazole (PROTONIX) 40 mg tablet sitaGLIPtin (JANUVIA) 25 mg tablet Take 1 tablet by mouth Daily. 120 tablet tamsulosin (FLOMAX) 0.4 mg CAPS Take 1 capsule by mouth daily (after breakfast). 90 cap radha 3 No current facility-administered medications for this visit. ALLERGIES Allergies Allergen Reactions Amlodipine Besylate Patient doesn't recall Bactrim Other (See Comments) Patient doesn't recall Irbesartan Other (See Comments) Patient doesn't recall Isosorbide Mononitrate Other (See Comments) Patient doesn't recall Pseudoephedrine Other (See Comments) Made him faint Spironolactone Other (See Comments) Patient doesn't recall Telmisartan Other (See Comments) Patient doesn't recall ROS Review of Systems Constitutional: Negative for malaise/fatigue. HENT: Negative for nosebleeds. Respiratory: Negative for shortness of breath. Cardiovascular: Negative for chest pain and palpitations. Neurological: Negative for dizziness, weakness and headaches. OBJECTIVE: PHYSICAL EXAM BP 160/70 | Pulse 60 | Resp 12 | Ht 1.702 m (5' 7") | Wt 113.5 kg (250 lb 3.6 oz) | BM I 39.19 kg/m Physical Exam Constitutional: He is oriented to person, place, and time. He appears well-developed and we ll-nourished. No distress. Elderly male individual arrives with a cane, without acute distress. HENT: Head: Normocephalic. Mouth/Throat: Mucous membranes are not cyanotic. Eyes: Lids are normal. Neck: Normal carotid pulses, no hepatojugular reflux and no JVD present. Carotid bruit is n ot present. No tracheal deviation present. Cardiovascular: Normal rate, regular rhythm, S1 normal, S2 normal and normal pulses. PMI i s not displaced. Exam reveals no gallop, no S3 and no S4. Murmur heard. Systolic murmur is present with a grade of 1/6 Continues murmur Pulses: Carotid pulses are 2+ on the right side, and 2+ on the left side. Femoral pulses are 2+ on the right side, and 2+ on the left side. Dorsalis pedis pulses are 2+ on the right side, and 2+ on the left side. Posterior tibial pulses are 2+ on the right side, and 2+ on the left side. Pulmonary/Chest: Effort normal and breath sounds normal. No accessory muscle usage. No resp iratory distress. He has no wheezes. He has no rhonchi. He has no rales. Abdominal: Soft. Normal appearance and bowel sounds are normal. He exhibits no abdominal br uit. There is no hepatosplenomegaly. There is no tenderness. Musculoskeletal: He exhibits edema (chronic static eczema ). Neurological: He is alert and oriented to person, place, and time. Gait normal. Skin: Skin is warm and dry. He is not diaphoretic. No cyanosis. No pallor. Nails show no cl ubbing. Psychiatric: He has a normal mood and affect. His mood appears not anxious. He does not exh ibit a depressed mood. ECG: I personally independently reviewed ECG tracing during this visit (interpreted and ciera led by another provider): Results for orders placed or performed in visit on 06/02/17 ECG 12 lead Result Value Ref Range INTERPRETATION TEXT Normal sinus rhythm Nonspecific intraventricular conduction delay ST & T wave abnormality, consider lateral ischemia Prolonged QT Abnormal ECG When compared with ECG of 02-JUN-2017 09:17, (Unconfirmed) No significant change was found Confirmed by SHRUTHI FERRER MD ([id number]) on 06/02/2017 3:35:32 PM LAB RESULTS reviewed during visit today primarily from [facility]: LIPID Lab Results Component Value Date CHOL 99 07/01/2012 TRIG 69 07/01/2012 HDL 30 07/01/2012 LDL 55 07/01/2012 LDLEX 44 09/17/2016 HDLEX 47 (A) 09/16/2016 TRIGEX 94 09/16/2016 CHOLEX 110 09/17/2016 CHEMISTRY Lab Results Component Value Date GLU 85 02/10/2016 GLUEX 117 (A) 12/02/2016 NA 137 02/10/2016 NAEX 141 12/02/2016 K 4.3 02/10/2016 KEX 4.1 12/02/2016 CL 93 (L) 02/10/2016 CLEX 98 12/02/2016 CO2 28 02/10/2016 CO2EX 27 12/02/2016 CALCIUM 8.6 02/10/2016 ALKPHOS 78 02/09/2016 AST 27 02/09/2016 ASTEX 13 09/16/2016 ALT 15 02/09/2016 ALTEX 8 09/16/2016 BILITOT 1.0 02/09/2016 CREA 4.89 (H) 02/10/2016 BUN 26 (H) 02/10/2016 EGFR 17.0 01/01/2013 EGFREX 14 (A) 09/17/2016 CREEX 5.09 (A) 12/02/2016 HEMATOLOGY Lab Results Component Value Date WBC 7.7 02/10/2016 WBCEX 13.2 (A) 05/31/2014 HGB 12.6 (L) 02/10/2016 HGBEX 10.3 (A) 05/31/2014 HCT 38.3 (L) 02/10/2016 HCTEX 32.6 (A) 05/31/2014 PLT 149 02/10/2016 PLTEX 179 05/31/2014 I reviewed records from [facility] for office visit on 06/02/2017 w hich is summarized in the HPI. Echocardiogram 09/08/17 shows Left ventricle is normal in size with systolic function appeari ng at the lower limit of normal. There is suboptimal endocardial resolution and poor echocar diographic windows, especially apically and subcostal. There is mild concentric LVH noted. LVEF is estimated in the range of 50-55%. Structurally normal tricusp id valve with moderate insufficiency and peak velocity consistent with RVSP 64-69 mmHg. Biat rial enlargement, left greater than right. Compared with patient's prior study of 2016, pulm onary pressures are estimated slightly higher, otherwise no significant changes are noted. Above data and testing is reviewed this visit; testing below is historical data unless othe rwise specified. ASSESSMENT: 1. Coronary artery disease involving [place] coronary artery of [place] heart without angina pectoris/ischemic cardiomyopathy: A. Status post an NSTEMI on 04/18/15, with prior PCI with ROXI 3 to the LAD, OM [address] Worley. Patient had refused CABG so he underwent stentin g. Still have residual pRCA (70%) and distal RCA involving bifurcation of PDA and PLV with s ignificant plaque burden in dRCA. Case was discussed between Dr. Celeste and an d recommended medical management unless patient becomes symptomatic and then they may consid er PCI B. Echocardiogram 09/16/2015 shows mildly dilated left ventricle wit h mild concentric left ventricular hypertrophy with mild systolic dysfunction with ejection fraction probably around 40%-45%, definity contrast may be considered for better evaluation of the left ventricular function and wall motion abnormalities, mildly dilated aorta to 40 m m . Jimmy Celeste MD C. Echocardiogram 08/10/2016 shows mild left atrial dilatation, janet l left ventricular size with a mild concentric left ventricular hypertrophy, left ventricula r systolic function is low-normal. LVEF is 50-55%, grade 1 left ventricular diastolic dysfun ction, mild mitral valve regurgitation, mild aortic valve insufficiency, [id number] tr icuspid valve regurgitation, moderate pulmonary hypertension with a peak systolic pressure o f 50-55 mmHg, mild aortic root dilatation measuring 4.2 cm in diameter, normal IVC with less than 50% collapse. D. Stress test 08/12/2016 shows persantine EKG is negative, abnormal persantine sestamibi myocardial perfusion study with a medium to large size, fixed defect of a mid anterior, distal anterolateral, apex and the entire inferior wall, this suggests a medium to large size myocardial scar of the dominant RCA and mid LAD territories, gated SPEC T reveals a thinning and akinesis of the entire inferior wall and anteroapical, left ventric ular systolic function is moderately decreased, LVEF by gated SPECT is 43 %. E.Echocardiogram 09/08/17 shows Left ventricle is normal in size with systolic function appe aring at the lower limit of normal. There is suboptimal endocardial resolution and poor echo cardiographic windows, especially apically and subcostal. There is mild concentric LVH noted . LVEF is estimated in the range of 50-55%. Structurally normal tricuspid valve with moderat e insufficiency and peak velocity consistent with RVSP 64-69 mmHg. Biatrial enlargement, lef t greater than right. Compared with patient's prior study of 2016, pulmonary pressures are e stimated slightly higher, otherwise no significant changes are noted. F. patient has no angina or dyspnea. He is using his stationary bike every day 12 minutes morning and 12 minutes at night. He will try to increase that to 15 minutes twice a day at [facility] and with the hope of increasing it up to 20 minutes twice a day. He is in some walking around [place] and to his brother's house with no symptoms while exerting. There is no s igns or symptoms of overt congestive heart failure. He is in a class I-II of [place] [employer] functional class. There is no leg swelling. He is in stage C of heart failur e classification seems to be euvolemic at this point. 2. Essential hypertension with goal blood pressure less than 130/80: A. blood pressure log from home shows better control blood pressur es 3. Hyperlipidemia, mixed: A. Patient remains on atorvastatin 80 mg. 4. End stage renal disease secondary to diabetic nephropathy A. Patient is on dialysis three times a week, Jybvei-Aijlotibf-Pvir ay. 5. Diabetes A. Patient remains on insulin. 6. Obesity and Inactivity: He tries walking and he using his bicycle twice a day 7. Obstructive sleep apnea 8. Anemia secondary to see daily 9. Secondary hyperparathyroidism PLAN: 1. The current medical regimen is effective; continue present plan and medications. 2. He has been encouraged to increase his physical activity and start doing his stationary bike twice a day 15-20 minutes at a time 3. He will follow up in 6 months, or sooner with concerns. Portions of this chart may have been created with [employer] voice recognition software. Occasi onal wrong-word or sound-alike substitutions may have occurred due to the inherent tucker itations of voice recognition software. Please read the chart carefully and recognize, using context, where these substitutions have occurred. in this encounter Plan of Treatment +--------+---------+ + + + | Date | Type | Specialty | Care Team | Description | +--------+---------+ + + + | 03/21/ | Office | Cardiology | Isidra, | | | 2017 | Visit | | JOE [facility] [address] | | | | | | [place], | | | | | | [place] [address] | | | | | | [phone] | | | | | | | | +--------+---------+ + + + as of this encounter Visit Diagnoses + + | Diagnosis | + + | Chronic systolic congestive heart failure (HCC) - Primary | + + | Chronic systolic heart failure | + + | Coronary artery disease involving [place] coronary artery of [place] heart without angina | | pectoris | + + | Essential hypertension with goal blood pressure less than 130/80 | + +
--- OUTSIDE RECORDS SUMMARY | 2017-10-11 23:10 | XMS | Clinical Summary ---
Demographics + + + | Address | [address] | | | [place] [address] | + + + | Home Phone | | + + + | Preferred Language | Unknown | + + + | Marital Status | Single | + + + | Islam Affiliation | 1041 | + + + | Race | Unknown | + + + | Ethnic Group | Unknown | + + + Author + + + | Author | [facility] | + + + | Organization | [facility] [facility] | + + + | Address | Unknown | + + + | Phone | Unavailable | + + + Support + + +---------+ + | Name | Relationship | Address | Phone | + + +---------+ + | Chilo Estes | ECON | Unknown | | + + +---------+ + Care Team Providers + +------+ + | Care Electrical Instrumentation Technician Name | Role | Phone | + +------+ + | Luciana Yoder DO | PP | | + +------+ + Allergies + + + + + + | Active Allergy | Reactions | Severity | Noted | Comments | | | | | Date | | + + + + + + | Urokinase | Other (See Comments) | Medium | 02/20/20 | OTHER | | | | | 15 | | + + + + + + | Amlodipine | Other (See Comments) | Medium | 02/20/20 | OTHER | | | | | 15 | | + + + + + + | Sulfamethoxazole-Tri | Other (See Comments) | Medium | 02/20/20 | OTHER | | methoprim | | | 15 | | + + + + + + | Irbesartan | Other (See Comments) | Medium | 02/20/20 | OTHER | | | | | 15 | | + + + + + + | Isosorbide Nitrate | Other (See Comments) | Medium | 02/20/20 | OTHER | | | | | 15 | | + + + + + + | Lisinopril | Other (See Comments) | Medium | 02/20/20 | OTHER | | | | | 15 | | + + + + + + | Spironolactone | Other (See Comments) | Medium | 02/20/20 | OTHER | | | | | 15 | | + + + + + + | Pseudoephedrine Hcl | Other (See Comments) | Medium | 12/23/19 | abstracted | | | | | 11 | | + + + + + + | Telmisartan | Other (See Comments) | Medium | 02/20/20 | OTHER | | | | | 15 | | + + + + + + Current Medications + + +--------+---------+------+------+-------+ | Prescription | Sig. | Disp. | Refills | Star | End | Statu | | | | | | t | Date | s | | | | | | Date | | | + + +--------+---------+------+------+-------+ | aspirin 325 MG | Take 325 mg by mouth | | | | | Activ | | tablet | daily. | | | | | e | + + +--------+---------+------+------+-------+ | ergocalciferol | Take 50,000 Units by | | | | | Activ | | (DRISDOL) 36623 | mouth once a week. | | | | | e | | UNITS capsule | | | | | | | + + +--------+---------+------+------+-------+ | ferrous sulfate | Take 325 mg by mouth | | | | | Activ | | 325 (65 FE) MG | daily with | | | | | e | | tablet | breakfast. | | | | | | + + +--------+---------+------+------+-------+ | vitamin B | Take 1 tablet by | | | | | Activ | | fpjuijk-L-ilvad acid | mouth daily with | | | | | e | | (SUPER B VITAMINS) | breakfast. | | | | | | | 0.8 MG TABS | | | | | | | + + +--------+---------+------+------+-------+ | sitaGLIPtin | Take 25 mg by mouth | | | | | Activ | | (JANUVIA) 50 MG | daily. | | | | | e | | tablet | | | | | | | + + +--------+---------+------+------+-------+ | fish oil omega-3 | Take 1 g by mouth | | | | | Activ | | fatty acids 1000 MG | daily. | | | | | e | | capsule | | | | | | | + + +--------+---------+------+------+-------+ | tamsulosin | Take 0.4 mg by mouth | | | | | Activ | | (FLOMAX) 0.4 MG | After dinner. | | | | | e | | capsule | | | | | | | + + +--------+---------+------+------+-------+ | sevelamer | Take 800 mg by mouth | | | | | Activ | | (RENVELA) 800 MG | 3 (three) times | | | | | e | | tablet | daily with meals. | | | | | | + + +--------+---------+------+------+-------+ | clopidogrel | Take 1 tablet by | 30 | 0 | 10/2 | | Activ | | (PLAVIX) 75 MG | mouth daily. | tablet | | 4/20 | | e | | tablet | | | | 15 | | | + + +--------+---------+------+------+-------+ | atorvastatin | Take 0.5 tablets by | 15 | 0 | 10/2 | | Activ | | (LIPITOR) 80 MG | mouth nightly. | tablet | | 4/20 | | e | | tablet | | | | 15 | | | + + +--------+---------+------+------+-------+ | pantoprazole | Take 40 mg by mouth | | | | | Activ | | (PROTONIX) 40 MG | every morning before | | | | | e | | tablet | breakfast. | | | | | | + + +--------+---------+------+------+-------+ | omeprazole | Take 20 mg by mouth | | | | | Activ | | (PRILOSEC) 20 MG | every morning before | | | | | e | | capsule | breakfast. | | | | | | + + +--------+---------+------+------+-------+ | furosemide (LASIX) | Take 80 mg by mouth | | | | | Activ | | 80 MG tablet | 2 (two) times daily. | | | | | e | + + +--------+---------+------+------+-------+ | lisinopril | Take 10 mg by mouth | | | | | Activ | | (ZESTRIL) 10 MG | daily. | | | | | e | | tablet | | | | | | | + + +--------+---------+------+------+-------+ | allopurinol | Take 300 mg by mouth | | | | | Activ | | (ZYLOPRIM) 300 MG | daily. | | | | | e | | tablet | | | | | | | + + +--------+---------+------+------+-------+ | carvedilol (COREG) | Take 12.5 mg by | | | | | Activ | | 12.5 MG tablet | mouth 2 (two) times | | | | | e | | | daily with meals. 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) | 04/18/2015 | + + + | AVIS (obstructive sleep apnea) | 04/18/2015 | + + + | Hypoalbuminemia | 04/18/2015 | + + + | Morbid obesity (HCC) | 08/17/2012 | + + + | Vitamin D deficiency | 07/05/2012 | + + + | Secondary renal hyperparathyroidism (HCC) | 07/05/2012 | + + + | Shortness of breath | 06/30/2012 | + + + | Elevated d-dimer | 06/30/2012 | + + + | CAD (coronary artery disease) | 06/30/2012 | + + + + + | Last Assessment & Plan: Three vessel CAD - patient refused | | CABG05/2015- Underwent PCI to mLAD and OMStill have residual pRCA | | (70%) and distal RCA involving bifurcation of PDA and PLV is | | noted with significant plaque burden in dRCA- he is currently | | asymptomatic- discussed with interventional cardiology- | | Brunilda- he recommends medical management and may consider PCI if | | he becomes symptomatic on maximal medical managementHe is | | currently asymptomaticDiscussed cath- findings with patient and | | interventional cardiology recommendations- also discussed | | importance of medication compliance and lifestyle changes, weight | | loss, dietContinue ASA, plavix, statin, coregEcho showed EF | | 50-55% - Repeat echo done post PCI showed EF dropped to 40-45%- | | he remained asymptomaticHe is currently recovering from a | | fluContinue Lisinopril, CoregMay need repeat angiogram to further | | evaluate fall in LV function- he want to do medical management | | only- he is currently asymptomatic, he was also not on optimal HF | | regimen, will re-evaluate LV function in 3 months F/u in 3 | | months after echo. | + + + + + | DM (diabetes mellitus) | 06/30/2012 | + + + Resolved Problems + + + + | Problem | Noted | Resolved | | | Date | Date | + + + + | Hyperphosphatemia | 04/18/20 | | | | 15 | 5 | + + + + | Volume overload | 07/05/19 | | | | 13 | 5 | + + + + | Metabolic acidosis | 06/30/20 | | | | 12 | 3 | + + + + | Dehydration | 06/30/20 | | | | 12 | 3 | + + + + | Diarrhea | 06/30/20 | | | | 12 | 3 | + + + + | Chronic diastolic heart failure (HCC) | 06/30/20 | | | | 12 | 2 | + + + + | Hyperkalemia | 06/30/20 | | | | 12 | 3 | + + + + Family History + + +------+ + | Medical History | Relation | Name | Comments | + + +------+ + | Heart disease | Maternal | | | | | Grandfath | | | | | er | | | + + +------+ + + +------+ + + | Relation | Name | Status | Comments | + +------+ + + | Brother | | Alive | Diabetic | + +------+ + + | Brother | | Alive | | + +------+ + + | Brother | Jamie | Alive | | + +------+ + + | Father | | | Diabetic | + +------+ + + | Maternal Grandfather | | | | + +------+ + + | Mother | | | | + +------+ + + | Sister | Pebbles | Alive | Diabetic | + +------+ + + Social History + +-------+ +--------+------+ | Tobacco Use | Types | Packs/Day | Years | Date | | | | | Used | | + +-------+ +--------+------+ | Former Smoker | | | | | + +-------+ +--------+------+ + +---+---+---+ | Smokeless Tobacco: | | | | | Never Used | | | | + +---+---+---+ + + | Comments: quit as a young adult | + + + + +---------+ + | Alcohol Use [...] + + + | Blood Pressure | 134/76 | 01/20/2016 11:14 AM PDT | + + + + | Pulse | 61 | 01/20/2016 11:14 AM PDT | + + + + | Temperature | 37 C (98.6 F) | 04/26/2015 7:35 AM PDT | + + + + | Respiratory Rate | 20 | 01/20/2016 11:14 AM PDT | + + + + | Oxygen Saturation | 97% | 01/20/2016 11:14 AM PDT | + + + + | Inhaled Oxygen | - | - | | Concentration | | | + + + + | Weight | 114.6 kg (252 lb 9.6 | 01/20/2016 11:14 AM PDT | | | oz) | | + + + + | Height | 170.2 cm (5' 7") | 01/20/2016 11:14 AM PDT | + + + + | Body Mass Index | 39.56 | 01/20/2016 11:14 AM PDT | + + + + Plan of Treatment + + + + + | Health Maintenance | Due Date | Last Done | Comments | + + + + + | Diabetic Eye Exam | | | | | | 7 | | | + + + + + | Diabetic Foot Exam | | | | | | 7 | | | + + + + + | Microalbumin | | | | | Screening | 7 | | | + + + + + | Vaccine: | | | | | Dtap/Tdap/Td (1 - | 6 | | | | Tdap) | | | | + + + + + | Colon Cancer | | | | | Screening | 7 | | | | (Colonoscopy) | | | | + + + [...] + + + + | Hemoglobin A1c | | 04/19/2015, 07/01/2012 | | | | 6 | | | + + + + + | Vaccine: Influenza | | | | | (Season Ended) | 8 | | | + + + + + Results Not on filefrom Last 3 Months Insurance + +--------+ +------+-------+ + | Payer | Benefi | Subscriber | Type | Phone | Address | | | t Plan | ID | | | | | | / | | | | | | | Group | | | | | + +--------+ +------+-------+ + | MEDICARE | MEDICA | xxxxxxxxxx | | | [address] | | | RE | | | | [place] [phone] | | | IP-OP | | | | | + +--------+ +------+-------+ + | MEDICAID | MEDICA | xxxxxxxx | | | [address] | | | ID | | | | [place], [place] | | | [place] | | | | [address] | + +--------+ +------+-------+ + | [facility] | YELLOW | xxxxxxxxx | | | | | PLANS | [place] | | | | | + +--------+ +------+-------+ + + +--------+ +--------+ + + | Guarantor Name | Accoun | Relation to | Date | Phone | Billing Address | | | t Type | Patient | of | | | | | | | | | | + +--------+ +--------+ + + | UDAY ESTES | Person | Self [birth year] | Home: | [address] | | | al/[place]ud[place] | | 1945 | [phone] [place] | | | geovanna | | [phone] [phone] | + +--------+ +--------+ + +
--- OUTSIDE RECORDS SUMMARY | 2017-10-11 23:11 | XMS | Encounter Summary ---
Demographics + + + | Address | [address] | | | [place] [address] | + + + | Home Phone | | + + + | Preferred Language | Unknown | + + + | Marital Status | Single | + + + | Church Affiliation | 1041 | + + + | Race | Unknown | + + + | Ethnic Group | Unknown | + + + Author + + + | Author | [facility] | | | and [place] | + + + | Organization | [facility] | | | and [place] | + + + | Address | Unknown | + + + | Phone | Unavailable | + + + Support + + + + + | Name | Relationship | Address | Phone | + + + + + | Chilo Webber | [place] | [place] | | | | | [address] | | + + + + + Care Team Providers + +------+ + | Care Climatology Teacher Name | Role | Phone | + +------+ + | Terry Lema PA-C | PCP | | + +------+ + Encounter Details +--------+ + + + + | Date | Type | Department | Care Team | Description | +--------+ + + + + | 08/10/ | Abstract | [facility] [place] | Luciana Yoder | | | 2018 | | NEPHROLOGY [address] | M, DO [address] | | | | | [address] | [address] | | | | | [place], [place] | [place], [place] | | | | | [address] | [address] | | | | | [phone] | | | +--------+ + + + + [...] + + + as of this encounter Plan of Treatment +--------+---------+ + + + | Date | Type | Specialty | Care Team | Description | +--------+---------+ + + + | 03/21/ | Office | Cardiology | Isidra, | | | 2017 | Visit | | JOE [facility] [address] | | | | | | [place], | | | | | | [place] [address] | | | | | | [phone] | | | | | | | | +--------+---------+ + + + as of this encounter Visit Diagnoses Not on filein this encounter"
--- OUTSIDE RECORDS SUMMARY | 2017-10-11 23:11 | XMS | Encounter Summary ---
Demographics + + + | Address | [address] | | | [place] [address] | + + + | Home Phone | | + + + | Preferred Language | Unknown | + + + | Marital Status | Single | + + + | Judaism Affiliation | 1041 | + + + | Race | Unknown | + + + | Ethnic Group | Unknown | + + + Author + + + | Author | [facility] | | | and [place] | + + + | Organization | [facility] | | | and [place] | + + + | Address | Unknown | + + + | Phone | Unavailable | + + + Support + + + + + | Name | Relationship | Address | Phone | + + + + + | Chilo Webber | [place] | [place] | | | | | [address] | | + + + + + Care Team Providers + +------+ + | Care Keno Writer Name | Role | Phone | + +------+ + | Terry Lema PA-C | PCP | | + +------+ + Reason for Visit +--------+ + | Reason | Comments | +--------+ + | Other | | +--------+ + Encounter Details +--------+ + + + + | Date | Type | Department | Care Team | Description | +--------+ + + + + | 09/02/ | Telephone | [facility] [place] | Isidra, | Other | | 2017 | | CARDIOLOGY [address] | Janet[address]E [address] | | | | | [place], | [place], | | | | | [place] [address] | [place] [address] | | | | | [phone] | | | | | | | | +--------+ + + + [...] [place], | | | | | | [place] [address] | | | | | | [phone] | | | | | | | | +--------+---------+ + + + as of this encounter Visit Diagnoses Not on filein this encounter"
--- OUTSIDE RECORDS SUMMARY | 2017-10-11 23:11 | XMS | Encounter Summary ---
Demographics + + + | Address | [address] | | | [place] [address] | + + + | Home Phone | | + + + | Preferred Language | Unknown | + + + | Marital Status | Single | + + + | Yazdanism Affiliation | 1041 | + + + | Race | Unknown | + + + | Ethnic Group | Unknown | + + + Author + + + | Author | [facility] | | | and [place] | + + + | Organization | [facility] | | | and [place] | + + + | Address | Unknown | + + + | Phone | Unavailable | + + + Support + + + + + | Name | Relationship | Address | Phone | + + + + + | Chilo Webber | [address] | [place] | | | | | [address] | | + + + + + Care Team Providers + +------+ + | Care Field Servicer Name | Role | Phone | + +------+ + | Terry Lema PA-C | PCP | | + +------+ + Encounter Details +--------+ + + + + | Date | Type | Department | Care Team | Description | +--------+ + + + + | 08/29/ | Documentati | [facility] | Luciana Yoder | | | 2017 | on | NEPHROLOGY [address] | M, DO [address] | | | | | [address] | [place] | | | | | [place], [place] | [place], [place] | | | | | [address] | [address] | | | | | [phone] | | | +--------+ + + + [...] + + + | Blood Pressure | 155/65 | 08/29/2017 1555 PST | + + + + | Pulse | - | - | + + + + | Temperature | 36.2 C (97.2 F) | 08/29/2017 1555 PST | + + + + | Respiratory Rate | - | - | + + + + | Oxygen Saturation | - | - | + + + + | Inhaled Oxygen | - | - | | Concentration | | | + + + + | Weight | - | - | + + + + | Height | - | - | + + + + | Body Mass Index | - | - | + + + + in this encounter Progress Notes Luciana Yoder DO - 08/29/2017 4316 PSTFormatting of this note may be different from the original. Subjective: DIALYSIS NOTE Patient ID: Kentrell Webber is a 72 y.o. male. HPI Comments: Monthly dialysis visit for this very pleasant, 72 YO with E SRD secondary to diabetic nephropathy who is seen at the [facility], [place], [place]. He is seen at the [facility] in [place]. He appears to attend all of his pre scribed treatments as recommended. Denies CHF symptoms. He also has a history of centripetal obesity/AVIS, CHF secondary to CKD, hypertension, anemi a secondary to CKD, SHPTH, gout, and H/O of CAD. He is status post an NSTEMI on 04/18/15, w ith prior PCI with ROXI 3 to the LAD, OM 2, and D1. Outpatient Prescriptions Marked as Taking for the 08/29/17 encounter (Documentation) with Josie Yoder DO Medication Sig Dispense Refill allopurinol (ZYLOPRIM) 300 [...] daily (after breakfast). 90 cap radha 3 Allergies Allergen Reactions Amlodipine Besylate Patient doesn't recall Bactrim Other (See Comments) Patient doesn't recall Irbesartan Other (See Comments) Patient doesn't recall Isosorbide Mononitrate Other (See Comments) Patient doesn't recall Pseudoephedrine Other (See Comments) Made him faint Spironolactone Other (See Comments) Patient doesn't recall Telmisartan Other (See Comments) Patient doesn't recall Objective: BP 155/65 | Temp 36.2 C (97.2 F) EDW 111.5 kg Physical Exam Heart: Regular rate and rhythm with no S3, S4, murmur or rub. Lungs: CTA in all castro. No rales or wheezes. Abdomen: Soft, obese, nontender, normoactive bowel sounds. Extremities: Trace edema, no clubbing, no cyanosis. LAB: BUN 43, Cr 8.10, K+ 4.6, HCO3 23, Ca++ 8.6, phosphorus 6.1, PTH 276, albumin 4.1, Hb 11.0, TSat 43%, ferritin 113, eKT/V = 1.13. . Assessment: 1. ESRD--his eKT/V is suboptimal. Will try utilizing a larger dialyzer e.g. 2.0 square m eters surface area thrice weekly and recheck this. 2. Type II DM-- good control by last A1c. 3. Anemia--Will decrease his EPO by 25% to target the Hb 10-11 g/dl. 4. Hypertension--good control at his current dry weight, from review of treatment data in [facility]. 5. SHPTH--phosphorus control is improved. His PTH is stable on the current dose of Maynor ol. 6. AVIS/obesity--same 7. CHF secondary to CKD--compensated. 8. Three-vessel CAD, status post PTCA with ROXI to mid LAD, OM2, and D1, 04/19/15-- stable on ASA, atorvastatin, carvedilol. 9. Nutrition--his appetite appears stable on the current Rx. 10. Transplantation-- he has been declining this in the past. 11. chronic plantar wart, right foot-- followed every 2 weeks by his local [facility], [place] [facility]. Plan: 1. I reviewed with [facility] his monthly lab, albumin, and PTH. 2. Will need to work on improving his adequacy to target a eKT/V >1.20.he does understand that if this cannot improve in a larger dialyzer he may need to increase his time somewhat? 3. Will recheck him in 2 weeks. : [facility], [place] Mendoza MD, FACC in this encounter Plan of Treatment +--------+---------+ + + + | Date | Type | Specialty | Care Team | Description | +--------+---------+ + + + | 03/21/ | Office | Cardiology | Isidra, | | | 2018 | Visit | | JOE Gonzales [address] | | | | | | [place], | | | | | | [place] [address] | | | | | | [phone] | | | | | | | | +--------+---------+ + + + as of this encounter Visit Diagnoses + + | Diagnosis | + + | End stage renal disease (HCC) - Primary | + + | End stage renal disease | + +"
--- OUTSIDE RECORDS SUMMARY | 2017-10-11 23:11 | XMS | Encounter Summary ---
Demographics + + + | Address | [address] | | | [place] [address] | + + + | Home Phone | | + + + | Preferred Language | Unknown | + + + | Marital Status | Single | + + + | Episcopalian Affiliation | 1041 | + + + | Race | Unknown | + + + | Ethnic Group | Unknown | + + + Author + + + | Author | [facility] | | | and [place] | + + + | Organization | [facility] | | | and [place] | + + + | Address | Unknown | + + + | Phone | Unavailable | + + + Support + + + + + | Name | Relationship | Address | Phone | + + + + + | Chilo Webber | [address] | [place] | | | | | [address] | | + + + + + Care Team Providers + +------+ + | Care Systems Spec Name | Role | Phone | + +------+ + | Terry Lema PA-C | PCP | | + +------+ + Reason for Referral Diagnostic/Screening (Routine) + +--------+ + + + + | Status | Reason | Specialty | Diagnoses / | Referred By | Referred To | | | | | Procedures | Contact | Contact | + +--------+ + + + + | Pending | | Radiology | Procedures | Provider, | | | Review | | | ECHO | Historical, | | | | | | Complete | MD [address] | | | | | | | Danie [address]. [address] | | | | | | | [place] | | | | | | | [address] | | + +--------+ + + + + Diagnostic/Screening (Routine) + +--------+ + + + + | Status | Reason | Specialty | Diagnoses / | Referred By | Referred To | | | | | Procedures | Contact | Contact | + +--------+ + + + + | Pending | | Radiology | Procedures | Provider, | | | Review | | | ECHO | Historical, | | | | | | Complete | MD [facility]arez | | | | | | | [address]ie Gonzalez. [address] | | | | | | | [place] | | | | | | | [address] | | + +--------+ + + + + Encounter Details +--------+ + + + + | Date | Type | Department | Care Team | Description | +--------+ + + + + | 08/02/ | Ancillary | [facility] | Provider, | | | 2018 | Orders | [facility] | MD [address] | | | | | IMAGING | Danie COSME | | | | | [phone] | [place] [address] | | +--------+ + + + + [...] [address] | | | | | | [place], | | | | | | [place] [address] | | | | | | [phone] | | | | | | | | +--------+---------+ + + + as of this encounter Results ECHO Complete (09/16/2015 0850) + + + | Specimen | Performing Laboratory | + + + | | [facility] | + + + + + | Narrative | + + | External films for comparison only - no result from [place]. | + + ECHO Complete (04/19/2015 0910) + + + | Specimen | Performing Laboratory | + + + | | [facility] | + + + + + | Narrative | + + | External films for comparison only - no result from [place]. | + + in this encounter Visit Diagnoses Not on filein this encounter"
== END 2017-10-11 23:18 | disposition home or self-care (01) ==
LOC: ED 22:27
DX: M10.9 Gout, unspecified (principal); E11.22 Type 2 diabetes mellitus with diabetic chronic kidney disease; N18.9 Chronic kidney disease, unspecified; I50.9 Heart failure, unspecified; E11.40 Type 2 diabetes mellitus with diabetic neuropathy, unspecified; Z88.8 Allergy status to other drugs, medicaments and biological substances; Z79.899 Other long term (current) drug therapy; Z99.2 Dependence on renal dialysis
CPT/HCPCS: 99283

== ENCOUNTER 2017-10-14 11:58 | Emergency (ER) | payer MEDICARE, OTHER ==
[~2017-10-14] VITALS: Ht 170.2 cm; Wt 111.1 kg
--- OUTSIDE RECORDS SUMMARY | ~2017-10-14 | XMS | Encounter Summary ---
Demographics + + + | Address | [address] | | | [place] [address] | + + + | Home Phone | | + + + | Preferred Language | Unknown | + + + | Marital Status | Single | + + + | Latter Day Affiliation | 1041 | + + + | Race | Unknown | + + + | Ethnic Group | Unknown | + + + Author + + + | Author | [facility] | | | and Zainana | + + + | Organization | [facility] | | | and [place] | + + + | Address | Unknown | + + + | Phone | Unavailable | + + + Support + + + + + | Name | Relationship | Address | Phone | + + + + + | Chilo Webber | DIVYA | [place] | | | | | [address] | | + + + + + Care Team Providers + +------+ + | Care Space Sciences Director Name | Role | Phone | + [...] | | | | failure, | [place] [address] | [address] [place] [address] | | | | | unspecified | CONF[facility]ERATED | [address] | | | | | (HCC) | WAY | [place], | | | | | Atherosclero | [place], | [place] [address] | | | | | tic heart | [place] [address] | Phone: | | | | | disease of | Phone: | [phone] | | | | | white earth | [phone] | Fax: | | | | | coronary | Fax: | [phone] | | | | | artery | [phone] | | | | | | without [...] + + | 09/15/ | Office | [facility] | [place], | Chronic systolic | | 2018 | Visit | CARDIOLOGY [address] | JOE Gonzales [address] | congestive heart | | | | [place], | [place], | failure (HCC) | | | | [place] [address] | [place] [address] | (Primary Dx); | | | | [phone] | [phone] | Coronary artery | | | | | | disease involving | | | | | | white earth coronary | | | | | | artery of white earth | | | | | | heart [...] history of coronary artery disease involvi ng white earth coronary artery of white earth heart without angina pectoris, ischemic cardiomyopathy s [...] stage renal disease Coronary artery disease involving white earth coronary artery of white earth heart without angina pectoris Essential hypertension with [...] was found Confirmed by SHRUTHI FERRER MD ([id number]) on 06/02/2017 3:35:32 PM LAB RESULTS reviewed during visit today primarily from [facility]: LIPID Lab Results Component Value Date CHOL [...] PLTEX 179 05/31/2014 I reviewed records from [facility] for office visit on 06/02/2017 w hich [...] specified. ASSESSMENT: 1. Coronary artery disease involving white earth coronary artery of white earth heart without angina pectoris/ischemic cardiomyopathy: A. Status [...] mitral valve regurgitation, mild aortic valve insufficiency, dfay-bn-jdpeccxz tr icuspid valve regurgitation, moderate pulmonary hypertension [...] to 15 minutes twice a day at [facility] and with the hope of increasing it up to 20 minutes twice a day. He is in some walking around the casino and to his brother's house with no symptoms while exerting. There is no s igns or symptoms of overt congestive heart failure. He is in a class I-II of [place] [employer] functional class. There is [...] is on dialysis three times a week, Hmjmxw-Pftwrjigw-Xsjw ay. 5. Diabetes A. Patient remains on [...] this chart may have been created with [employer] voice recognition software. Occasi onal wrong-word or [...] | | | | | | [place] [address] | | | | | | [phone] | | | | | | | | +--------+---------+ + + + as of this encounter Visit Diagnoses + + | Diagnosis | + + | Chronic systolic congestive heart failure (HCC) - Primary | + + | Chronic systolic heart failure | + + | Coronary artery disease involving white earth coronary artery of white earth heart without angina | | pectoris | + + | Essential hypertension with goal blood pressure less than 130/80 | + +
--- OUTSIDE RECORDS SUMMARY | ~2017-10-14 | XMS | Encounter Summary ---
Demographics + + + | Address | [address] | | | [place] [address] | + + + | Home Phone | | + + + | Preferred Language | Unknown | + + + | Marital Status | Single | + + + | Rastafari Affiliation | 1041 | + + + | Race | Unknown | + + + | Ethnic Group | Unknown | + + + Author + + + | Author | [facility] | | | and [place] | + + + | Organization | [facility] | | | and [place] | + + + | Address | Unknown | + + + | Phone | Unavailable | + + + Support + + + + + | Name | Relationship | Address | Phone | + + + + + | Chilo Webber | DIVYA | [place] | | | | | [address] | | + + + + + Care Team Providers + +------+ + | Care Battery Installer Name | Role | Phone | + [...] NEPHROLOGY [address] | M, DO [address] | | | | | [address] | [place], [address] | | | | | [place], [place] | [place], [place] | | | | | [address] | [address] | | | | | [phone] | | | +--------+ + + + [...] Progress Notes Luciana Yoder DO - 08/29/2017 2369 PSTFormatting of this note may be different from the original. Subjective: DIALYSIS NOTE Patient ID: Kentrell Webber is a 72 y.o. male. HPI Comments: Monthly dialysis visit for this very pleasant, 72 YO with E SRD secondary to diabetic nephropathy who is seen at the [facility], [place], [place]. He is seen at the [facility] in [place]. He appears to attend all of his [...] followed every 2 weeks by his local Manager Game, [facility]. Plan: 1. I reviewed with [place] his monthly lab, albumin, and PTH. 2. Will need to work on improving his adequacy to target a eKT/V >1.20.he does understand that if this cannot improve in a larger dialyzer he may need to increase his time somewhat? 3. Will recheck him in 2 weeks. : [facility], [place] Mendoza MD, FACC in this encounter [...] [place], | | | | | | [place] [address] | | | | | | [phone] | | | | | | | | +--------+---------+ + + + as of this encounter Visit Diagnoses + + | Diagnosis | + + | End stage renal disease (HCC) - Primary | + + | End stage renal disease | + +"
--- OUTSIDE RECORDS SUMMARY | ~2017-10-14 | XMS | Encounter Summary ---
Demographics + + + | Address | [address] | | | [place] [address] | + + + | Home Phone | | + + + | Preferred Language | Unknown | + + + | Marital Status | Single | + + + | Jainism Affiliation | 1041 | + + + | Race | Unknown | + + + | Ethnic Group | Unknown | + + + Author + + + | Author | [facility] | | | and [place]ain[place] | + + + | Organization | [facility] | | | and [place] | + + + | Address | Unknown | + + + | Phone | Unavailable | + + + Support + + + + + | Name | Relationship | Address | Phone | + + + + + | Chilo Webber | DIVYA | [place] | | | | | [address] | | + + + + + Care Team Providers + +------+ + | Care Cork Floor Installer Name | Role | Phone | [...] NEPHROLOGY [address] | M, DO [address] | | | | | [address] | [place], [address] | | | | | [place], [place] | [place], [place] | | | | | [address] | [address] | | | | | [phone] | | | +--------+ + + + [...] [place], | | | | | | [place] [address] | | | | | | [phone] | | | | | | | | +--------+---------+ + + + as of this encounter Visit Diagnoses Not on filein this encounter"
--- OUTSIDE RECORDS SUMMARY | ~2017-10-14 | XMS | Encounter Summary ---
Demographics + + + | Address | [address] | | | [place] [address] | + + + | Home Phone | | + + + | Preferred Language | Unknown | + + + | Marital Status | Single | + + + | Tenriism Affiliation | 1041 | + + + | Race | Unknown | + + + | Ethnic Group | Unknown | + + + Author + + + | Author | [facility] | | | and [place] | + + + | Organization | [facility] | | | and [place] | + + + | Address | Unknown | + + + | Phone | Unavailable | + + + Support + + + + + | Name | Relationship | Address | Phone | + + + + + | Chilo Webber | DIVYA | [place] | | | | | [address] | | + + + + + Care Team Providers + +------+ + | Care Early Childhood Coordinator Name | Role | Phone | + [...] [address] | | | | | [place], | [place], | | | | | [place] [address] | [place] [address] | | | | | [phone] | [phone] | | | | | | | [...] [place], | | | | | | [place] [address] | | | | | | [phone] | | | | | | | | +--------+---------+ + + + as of this encounter Visit Diagnoses Not on filein this encounter"
--- OUTSIDE RECORDS SUMMARY | ~2017-10-14 | XMS | Encounter Summary ---
Demographics + + + | Address | [address] | | | [place] [address] | + + + | Home Phone | | + + + | Preferred Language | Unknown | + + + | Marital Status | Single | + + + | Gnosticism Affiliation | 1041 | + + + | Race | Unknown | + + + | Ethnic Group | Unknown | + + + Author + + + | Author | [facility] | | | and [place]ain[place] | + + + | Organization | [facility] | | | and [place] | + + + | Address | Unknown | + + + | Phone | Unavailable | + + + Support + + + + + | Name | Relationship | Address | Phone | + + + + + | Chilo Webber | DIVYA | [place] | | | | | [address] | | + + + + + Care Team Providers + +------+ + | Care Structural Engineering Project Manager Name | Role | Phone | + [...] [address] | | | | | [place], | [place], | | | | | [place] [address] | [place] [address] | | | | | [phone] | [phone] | | | | | | | [...] [place], | | | | | | [place] [address] | | | | | | [phone] | | | | | | | | +--------+---------+ + + + as of this encounter Visit Diagnoses Not on filein this encounter"
--- OUTSIDE RECORDS SUMMARY | ~2017-10-14 | XMS | Encounter Summary ---
Demographics + + + | Address | [address] | | | [place] [address] | + + + | Home Phone | | + + + | Preferred Language | Unknown | + + + | Marital Status | Single | + + + | Samaritan Affiliation | 1041 | + + + | Race | Unknown | + + + | Ethnic Group | Unknown | + + + Author + + + | Author | [facility] | | | and [place] | + + + | Organization | [facility] | | | and [place] | + + + | Address | Unknown | + + + | Phone | Unavailable | + + + Support + + + + + | Name | Relationship | Address | Phone | + + + + + | Chilo Webber | DIVYA | [place] | | | | | [address] | | + + + + + Care Team Providers + +------+ + | Care Hostel Manager Name | Role | Phone | [...] | Chronic | [place], | [address] | | | | | systolic | Janet, ENGINEER GEOPHYSICAL LABORATORY | [place], | | | | | congestive | [address] | [place] | | | | | heart | [place] | [address] | | | | | failure | [place], | Phone: | | | | | (HCC) | [place] | [phone] | | | | | Procedures | [address] | Fax: | | | | | ECHO | Phone: | [phone] | | | | | Complete [place] | [phone] | | | | | | ECHO HEART | Fax: | | | | | | [place] | [phone] | | | | | | MPLETE [address] | | | | | | | DOPPLER IN | | | | | | | [...] | Chronic | [place], | [address] | | | | | systolic | Janet, ENGINEER GEOPHYSICAL LABORATORY | [place], | | | | | congestive | [address] | [place] | | | | | heart | [place] | [address] | | | | | failure | [place], | Phone: | | | | | (HCC) | [place] | [phone] | | | | | Procedures | [address] | Fax: | | | | | ECHO | Phone: | [phone] | | | | | Complete [place] | [phone] | | | | | | ECHO HEART | Fax: | | | | | | [place] | [phone] | | | | | | MPLETE W | | | | | | | DOPPLER IN | | | | | | | [...] | | | | | Chronic | [place], | [address] | | | | | systolic | JEM LynchP | [place], | | | | | congestive | [address] | [place] | | | | | heart | [place] | [address] | | | | | failure | [place], | Phone: | | | | | (HCC) | [place] | [phone] | | | | | Procedures | [address] | Fax: | | | | | ECHO | Phone: | [phone] | | | | | Complete [place] | [phone] | | | | | | ECHO HEART | Fax: | | | | | | [place] | [phone] | | | | | | MPLETE W | | | | | | | DOPPLER IN | | | | | | | [...] + + | 09/08/ | Hospital | [facility] | [place], | Chronic systolic | | 2018 | Encounter | [facility] E[facility] [address] | Janet, ENGINEER GEOPHYSICAL LABORATORY [address] | congestive heart | | | | [place] | [place], | failure (HCC) | | | | [place] [address] | [place] [address] | | | | | [phone] | [phone] | | | | | | | [...] W | | | | | | [place], | | | | | | [place] [address] | | | | | | [phone] | | | | | | | [...] FRYE Room Number MOISE | | Patient [id number] Date of Study 09/08/2017 | | Number Visit Number [id number] Accession | | [id number] Referring Physician DANIEL LYNCH Number Date of | | 1945 Maintenance Mechanic Engine Aba Hurst | | Age 72 | | year(s) Interpreting DOLLY BILLS | | | | Strategy Intern ALEXEI | | | | ALEXEI ALBERTO MD | | Gender Male Nurse | | Stress Android Ios Developer | | Procedure Type of Study TTE [...] 168.13 ml | | | | EF Wdvcqmfqq38% Left Ventricle Diastolic Dimension: 6.71 | | [...] | MOISE | | | | Patient [id number] Date of Study 09/08/2017 | | Number | | | | Visit Number [id number] | | | | Referring Physician DANIEL LYNCH | | Number | | | | Date of 1945 Maintenance Mechanic Engine Aba Encisoery | | | | Age 72 year(s) Interpreting DOLLY BILLS | | Strategy Intern ALEXEI | | ALEXEI ALBERTO MD | | | | Gender Male Nurse | | | | Stress Android Ios Developer | | | | Procedure | | [...] LA Volume: 168.13 ml | | EF Ucezymhdd67% | | | | Left Ventricle | [...]
--- OUTSIDE RECORDS SUMMARY | ~2017-10-14 | XMS | Encounter Summary ---
Demographics + + + | Address | [address] | | | [place] [address] | + + + | Home Phone | | + + + | Preferred Language | Unknown | + + + | Marital Status | Single | + + + | Taoism Affiliation | 1041 | + + + | Race | Unknown | + + + | Ethnic Group | Unknown | + + + Author + + + | Author | [facility] | | | and [place] | + + + | Organization | [facility] | | | and [place] | + + + | Address | Unknown | + + + | Phone | Unavailable | + + + Support + + + + + | Name | Relationship | Address | Phone | + + + + + | Chilo Webber | DIVYA | [place] | | | | | [address] | | + + + + + Care Team Providers + +------+ + | Care Chief Radiology Name | Role | Phone | + [...] NEPHROLOGY [address] | M, DO [address] [place] | | | | | [address] | [place], [address] | | | | | [place], [place] | [place], [place] | | | | | [address] | [address] | | | | | [phone] | | | +--------+ + + + [...] [place], | | | | | | [place] [address] | | | | | | [phone] | | | | | | | | +--------+---------+ + + + as of this encounter Visit Diagnoses Not on filein this encounter"
--- OUTSIDE RECORDS SUMMARY | ~2017-10-14 | XMS | Encounter Summary ---
Demographics + + + | Address | [address] | | | [place] [address] | + + + | Home Phone | | + + + | Preferred Language | Unknown | + + + | Marital Status | Single | + + + | Religion Affiliation | 1041 | + + + | Race | Unknown | + + + | Ethnic Group | Unknown | + + + Author + + + | Author | [facility] | | | and [place] | + + + | Organization | [facility] | | | and [place] | + + + | Address | Unknown | + + + | Phone | Unavailable | + + + Support + + + + + | Name | Relationship | Address | Phone | + + + + + | Chilo Webber | DIVYA | [place] | | | | | [address] | | + + + + + Care Team Providers + +------+ + | Care Veneer Press Operator Name | Role | Phone | [...] | | | | | | | [address] | | + +--------+ + + + [...] | | | | | | | [address] | | + +--------+ + + + [...] Danie COSME | | | | | [phone] | [place] [address] | | +--------+ + + + + [...] W | | | | | | [place], | | | | | | [place] [address] | | | | | | [phone] | | | | | | | | +--------+---------+ + + + as of this encounter Results ECHO Complete (09/16/2015 0850) + + + | Specimen | Performing Laboratory | + + + | | [facility] | + + + + + | Narrative | + + | External films for comparison only - no result from [place]. | + + ECHO Complete (04/19/2015 0910) + + + | Specimen | Performing Laboratory | + + + | | [facility] | + + + + + | Narrative | + + | External films for comparison only - no result from [facility]. | + + in this encounter Visit Diagnoses Not on filein this encounter"
--- OUTSIDE RECORDS SUMMARY | ~2017-10-14 | XMS | Encounter Summary ---
Demographics + + + | Address | [address] | | | [place] [address] | + + + | Home Phone | | + + + | Preferred Language | Unknown | + + + | Marital Status | Single | + + + | Rastafari Affiliation | 1041 | + + + | Race | Unknown | + + + | Ethnic Group | Unknown | + + + Author + + + | Author | [facility] | | | and [place] | + + + | Organization | [facility] [place] | | | and [place] | + + + | Address | Unknown | + + + | Phone | Unavailable | + + + Support + + + + + | Name | Relationship | Address | Phone | + + + + + | Chilo Webber | DIVYA | [place] | | | | | [address] | | + + + + + Care Team Providers + +------+ + | Care Beauty Consultant Name | Role | Phone | + [...] NEPHROLOGY [address] | M, DO [address] | | | | | [address] | [place], [address] | | | | | [place], [place] | [place], [place] | | | | | [address] | [address] | | | | | [phone] | | | +--------+ + + + [...] Progress Notes Luciana Yoder DO - 08/29/2017 0368 PSTFormatting of this note may be different from the original. Subjective: DIALYSIS NOTE Patient ID: Kentrell Webber is a 72 y.o. male. HPI Comments: Monthly dialysis visit for this very pleasant, 72 YO with E SRD secondary to diabetic nephropathy who is seen at the [facility], [place], [place]. He is seen at the [facility] in [place]. He appears to attend all of his [...] followed every 2 weeks by his local Broadcast Engineer, [facility]. Plan: 1. I reviewed with [place] his monthly lab, albumin, and PTH. 2. Will need to work on improving his adequacy to target a eKT/V >1.20.he does understand that if this cannot improve in a larger dialyzer he may need to increase his time somewhat? 3. Will recheck him in 2 weeks. : [facility], [place] Mendoza MD, FACC in this encounter [...] | | | | | | [place] [address] | | | | | | [phone] | | | | | | | | +--------+---------+ + + + as of this encounter Visit Diagnoses + + | Diagnosis | + + | End stage renal disease (HCC) - Primary | + + | End stage renal disease | + +"
--- OUTSIDE RECORDS SUMMARY | ~2017-10-14 | XMS | Clinical Summary ---
Demographics + + + | Address | [address] | | | [place] [address] | + + + | Home Phone | | + + + | Preferred Language | Unknown | + + + | Marital Status | Single | + + + | Sabianist Affiliation | 1041 | + + + | Race | Unknown | + + + | Ethnic Group | Unknown | + + + Author + + + | Author | [facility] | + + + | Organization | [facility] | + + + | Address | Unknown | + + + | Phone | Unavailable | + + + Support + + +---------+ + | Name | Relationship | Address | Phone | + + +---------+ + | Chilo Estes | ECON | Unknown | | + + +---------+ + Care Team Providers + +------+ + | Care Plain Clothes Police Officer Name | Role | Phone | + [...] | | | Activ | | (DRISDOL) [id number] | mouth once a week. | | [...] | | | | Activ | | bexpcbo-T-rjxkp acid | mouth daily with | | [...] | + + + | Non-ST elevation NM (NSTEMI) | 04/18/2015 | + + + [...] | xxxxxxxxxx | | | [address] | | | RE | | | | [place] [address] | | | IP-OP | | | | | + +--------+ +------+-------+ + | MEDICAID | MEDICA | xxxxxxxx | | | [address] | | | [place] | | | | [place], [place] | | | [place] | | | | [address] | + +--------+ +------+-------+ + | [facility] | YELLOW | xxxxxxxxx | [...] | Self | [birth year] | Home: | [address] | | | al/[place] | | 1945 | [phone] | [place] | | | geovanna | | | [phone] | [address] | + +--------+ +--------+ + +
--- OUTSIDE RECORDS SUMMARY | ~2017-10-14 | XMS | Clinical Summary ---
Demographics + + + | Address | [address] | | | [place] [address] | + + + | Home Phone | | + + + | Preferred Language | Unknown | + + + | Marital Status | Single | + + + | Lutheran Affiliation | 1041 | + + + | Race | Unknown | + + + | Ethnic Group | Unknown | + + + Author + + + | Author | [facility] [place] | | | and [place] | + + + | Organization | [facility] [place] | | | and [place] | + + + | Address | Unknown | + + + | Phone | Unavailable | + + + Support + + + + + | Name | Relationship | Address | Phone | + + + + + | Chilo Estes | DIVYA | [place] | | | | | [address] | | + + + + + Care Team Providers + +------+ + | Care Composite Boat Builder Name | Role | Phone | + [...] + + | End stage renal disease ([facility]) | 02/11/2016 | + + + | DM foot ulcers ([facility]) | 02/11/2016 | + + + | [...] + + | Coronary artery disease involving ho-chunk coronary artery of | 04/26/2013 | | ho-chunk heart without angina pectoris | | + [...] DM type 2 (diabetes mellitus, type 2) ([facility]) | | + + + + + [...] regurgitation, mild aortic valve | | insufficiency, xlqe-vd-momcoyac tricuspid valve regurgitation, | | moderate pulmonary [...] involving | | | | | | ho-chunk coronary | | | | | | artery of ho-chunk | | | | | | heart [...] [place], | | | | | | [place] [address] | | | | | | [phone] | | | | | | | [...] FRYE Room Number MOISE | | Patient [id number] Date of Study 09/08/2017 | | Number Visit Number [id number] Accession | | [id number] Referring Physician DANIEL LYNCH Number Date of | | 1945 Compass Operator Aab Hurst | | Age 72 | | year(s) Interpreting DOLLY BILLS | | | | Farm Labor Contractor ALEXEI | | | | ALEXEI ALBERTO MD | | Gender Male Nurse | | Stress Patient Care Provider | | Procedure Type of Study TTE [...] 168.13 ml | | | | EF Nuwpeyujp99% Left Ventricle Diastolic Dimension: 6.71 | | [...] | MOISE | | | | Patient [id number] Date of Study 09/08/2017 | | Number | | | | Visit Number [id number] | | | | Referring Physician DANIEL LYNCH | | Number | | | | Date of 1945 Compass Operator Aba Hurst | | | | Age 72 year(s) Interpreting DOLLY BILLS | | Farm Labor Contractor ALEXEI | | ALEXEI ALBERTO MD | | | | Gender Male Nurse | | | | Stress Patient Care Provider | | | | Procedure | | [...] LA Volume: 168.13 ml | | EF Svusjdnhk16% | | | | Left Ventricle | [...] | | + +--------+ +--------+ +---------+ | [facility] | IHS | xxxxxxxxx | Indemn [...] | Self | [birth year] | Home: | [address] | | [place] | yair/[place] | | 1945 | [phone] | [place] | | | [place] | | | [phone] | [address] | + +--------+ +--------+ + +
--- OUTSIDE RECORDS SUMMARY | ~2017-10-14 | XMS | Encounter Summary ---
Demographics + + + | Address | [address] | | | [place] [address] | + + + | Home Phone [...] + + + | Author | [facility] | | | and [place]ain[place] | + + + | Organization | [facility] | | | and [place] | + + + | Address | Unknown | + + + | Phone | Unavailable | + + + Support + + + + + | Name | Relationship | Address | Phone | + + + + + | Chilo Webber | DIVYA | [place] | | | | | [address] | | + + + + + Care Team Providers + +------+ + | Care Radio Dispatcher Name | Role | Phone | + [...] | | | | failure, | PA-C [address] | [address] [place] [address] | | | | | unspecified | CONFEDERATED | [address] | | | | | (HCC) | WAY | [place], | | | | | Atherosclero | [place], | [place] [address] | | | | | tic heart | [place] [address] | Phone: | | | | | disease of | Phone: | [phone] | | | | | cachil dehe | [phone] | Fax: | | | | | coronary | Fax: | [phone] | | | | | artery | [phone] | | | | | | without [...] + + | 09/15/ | Office | [facility] | [place], | Chronic systolic | | 2018 | Visit | CARDIOLOGY [address] | JOE Gonzales [address] | congestive heart | | | | [place], | [place], | failure (HCC) | | | | [place] [id number] | [place] [address] | (Primary Dx); | | | | [phone] | [phone] | Coronary artery | | | | | | disease involving | | | | | | cachil dehe coronary | | | | | | artery of [place] | | | | | | heart [...] history of coronary artery disease involvi ng c[place] coronary artery of [place] heart without angina pectoris, ischemic cardiomyopathy s [...] stage renal disease Coronary artery disease involving [place] coronary artery of [place] heart without angina pectoris Essential hypertension with [...] was found Confirmed by SHRUTHI FERRER MD ([id number]) on 06/02/2017 3:35:32 PM LAB RESULTS reviewed during visit today primarily from [facility]: LIPID Lab Results Component Value Date [...] PLTEX 179 05/31/2014 I reviewed records from [facility] for office visit on 06/02/2017 w [...] specified. ASSESSMENT: 1. Coronary artery disease involving [place] coronary artery of c[place] de[place] heart without angina pectoris/ischemic cardiomyopathy: A. Status [...] mitral valve regurgitation, mild aortic valve insufficiency, nxmj-cd-zqtssaak tr icuspid valve regurgitation, moderate pulmonary hypertension [...] to 15 minutes twice a day at [facility] and with the hope of increasing it up to 20 minutes twice a day. He is in some walking around the [place] and to his brother's house with no symptoms while exerting. There is no s igns or symptoms of overt congestive heart failure. He is in a class I-II of [place] [employer] functional class. There is [...] is on dialysis three times a week, Rlnhfz-Fqmyemtpj-Eoil ay. 5. Diabetes A. Patient remains on [...] this chart may have been created with [employer] voice recognition software. Occasi onal wrong-word or [...] | | | | | | [place] [address] | | | | | | [phone] | | | | | | | | +--------+---------+ + + + as of this encounter Visit Diagnoses + + | Diagnosis | + + | Chronic systolic congestive heart failure (HCC) - Primary | + + | Chronic systolic heart failure | + + | Coronary artery disease involving c[place]il dehe coronary artery of c[place] de[place] heart without angina | | pectoris | + + | Essential hypertension with goal blood pressure less than 130/80 | + +
--- OUTSIDE RECORDS SUMMARY | ~2017-10-14 | XMS | Clinical Summary ---
Demographics + + + | Address | [address] | | | [place] [address] | + + + | Home Phone | | + + + | Preferred Language | Unknown | + + + | Marital Status | Single | + + + | Lutheran Affiliation | 1041 | + + + | Race | Unknown | + + + | Ethnic Group | Unknown | + + + Author + + + | Author | [facility] | | | and [place]ain[place] | + + + | Organization | [facility] | | | and [place] | + + + | Address | Unknown | + + + | Phone | Unavailable | + + + Support + + + + + | Name | Relationship | Address | Phone | + + + + + | Chilo Estes | DIVYA | [place] | | | | | [address] | | + + + + + Care Team Providers + +------+ + | Care Aircraft Power Plant Assembler Name | Role | Phone | + [...] + + | End stage renal disease ([facility]) | 02/11/2016 | + + + | DM foot ulcers ([facility]) | 02/11/2016 | + + + | [...] + + | Coronary artery disease involving [place] coronary artery of | 04/26/2013 | | [place] heart without angina pectoris | | + [...] DM type 2 (diabetes mellitus, type 2) ([facility]) | | + + + + + [...] regurgitation, mild aortic valve | | insufficiency, uaxw-sl-wtigvyue tricuspid valve regurgitation, | | moderate pulmonary [...] involving | | | | | | [place] coronary | | | | | | artery of [place] | | | | | | heart [...] [place], | | | | | | [place] [address] | | | | | | [phone] | | | | | | | [...] FRYE Room Number MOISE | | Patient [id number] Date of Study 09/08/2017 | | Number Visit Number [id number] Accession | | [id number] Referring Physician DANIEL LYNCH Number Date of | | 1945 Pinking Machine Operator Aba Hurst | | Age 72 | | year(s) Interpreting DOLLY BILLS | | | | Nutrition Services Aide ALEXEI | | | | ALEXEI ALBERTO MD | | Gender Male Nurse | | Stress Dairy Nutrition Specialist | | Procedure Type of Study TTE [...] 168.13 ml | | | | EF Mqculnmgv46% Left Ventricle Diastolic Dimension: 6.71 | | [...] | MOISE | | | | Patient [id number] Date of Study 09/08/2017 | | Number | | | | Visit Number [id number] | | | | Referring Physician DANIEL LYNCH | | Number | | | | Date of 1945 Pinking Machine Operator Aba Hurst | | | | Age 72 year(s) Interpreting DOLLY BILLS | | Nutrition Services Aide ALEXEI | | ALEXEI ALBERTO MD | | | | Gender Male Nurse | | | | Stress Dairy Nutrition Specialist | | | | Procedure | | [...] LA Volume: 168.13 ml | | EF Jrvlggqzc18% | | | | Left Ventricle | [...] | | + +--------+ +--------+ +---------+ | [facility] | IHS | xxxxxxxxx | Indemn [...] | Self | [birth year] | Home: | [address] | | [place] | yair/Ludwig | | 1945 | [phone] | [place] | | | geovanna | | | [phone] | + +--------+ +--------+ + +
--- OUTSIDE RECORDS SUMMARY | ~2017-10-14 | XMS | Encounter Summary ---
Demographics + + + | Address | [address] | | | [place] [address] | + + + | Home Phone | | + + + | Preferred Language | Unknown | + + + | Marital Status | Single | + + + | Christian Affiliation | 1041 | + + + | Race | Unknown | + + + | Ethnic Group | Unknown | + + + Author + + + | Author | [facility] [place] | | | and [place] | + + + | Organization | [facility] [place] | | | and [place] | + + + | Address | Unknown | + + + | Phone | Unavailable | + + + Support + + + + + | Name | Relationship | Address | Phone | + + + + + | Chilo Webber | DIVYA | [place] | | | | | [address] | | + + + + + Care Team Providers + +------+ + | Care Mammalogist Name | Role | Phone | + [...] | Chronic | [place], | [address] | | | | | systolic | Janet, CLAMP REMOVER | [place], | | | | | congestive | [address] | [place] | | | | | heart | [place] | [address] | | | | | failure | [place], | Phone: | | | | | (HCC) | [place] | [phone] | | | | | Procedures | [address] | Fax: | | | | | ECHO | Phone: | [phone] | | | | | Complete [place] | [phone] | | | | | | ECHO HEART | Fax: | | | | | | [place] | [phone] | | | | | | [address] | | | | | | | [place] | | | | | | | [...] | Chronic | [place], | [address] | | | | | systolic | Janet, CLAMP REMOVER | [place], | | | | | congestive | [address] | [place] | | | | | heart | [place] | [address] | | | | | failure | [place], | Phone: | | | | | (HCC) | [place] | [phone] | | | | | Procedures | [address] | Fax: | | | | | ECHO | Phone: | [phone] | | | | | Complete [place] | [phone] | | | | | | ECHO HEART | Fax: | | | | | | [place] | [phone] | | | | | | MPLETE [address] | | | | | | | [place] | | | | | | | [...] | | | | | Chronic | [place], | [address] | | | | | systolic | JEM LynchP | [place], | | | | | congestive | [address] | [place] | | | | | heart | [place] | [address] | | | | | failure | [place], | Phone: | | | | | (HCC) | [place] | [phone] | | | | | Procedures | [address] | Fax: | | | | | ECHO | Phone: | [phone] | | | | | Complete [place] | [phone] | | | | | | ECHO HEART | Fax: | | | | | | [place] | [phone] | | | | | | MPLETE [place] | | | | | | | [place] | | | | | | | [...] + + | 09/08/ | Hospital | [facility] | [place], | Chronic systolic | | 2018 | Encounter | [facility] ECHO [address] | Janet, CLAMP REMOVER [address] | congestive heart | | | | [place] | [place], | failure (HCC) | | | | [place] [address] | [place] [address] | | | | | [phone] | [phone] | | | | | | | [...] W | | | | | | [place], | | | | | | [place] [address] | | | | | | [phone] | | | | | | | [...] FRYE Room Number MOISE | | Patient [id number] Date of Study 09/08/2017 | | Number Visit Number [id number] Accession | | [id number] Referring Physician DANIEL LYNCH Number Date of | | 1945 Sprayer Automatic Spray Machine Aba Hurst | | Age 72 | | year(s) Interpreting DOLLY BILLS | | | | Top Lift Cutter ALEXEI | | | | ALEXEI ALBERTO MD | | Gender Male Nurse | | Stress Crab Steamer | | Procedure Type of Study TTE [...] 168.13 ml | | | | EF Jucezrnym13% Left Ventricle Diastolic Dimension: 6.71 | | [...] | MOISE | | | | Patient [id number] Date of Study 09/08/2017 | | Number | | | | Visit Number [id number] | | | | Referring Physician DANIEL LYNCH | | Number | | | | Date of 1945 Sprayer Automatic Spray Machine Aba Encisoery | | | | Age 72 year(s) Interpreting DOLLY BILLS | | Top Lift Cutter ALEXEI | | ALEXEI ALBERTO MD | | | | Gender Male Nurse | | | | Stress Crab Steamer | | | | Procedure | | [...] LA Volume: 168.13 ml | | EF Wohsvoxwm72% | | | | Left Ventricle | [...]
--- OUTSIDE RECORDS SUMMARY | ~2017-10-14 | XMS | Encounter Summary ---
Demographics + + + | Address | [address] | | | [place] [address] | + + + | Home Phone | | + + + | Preferred Language | Unknown | + + + | Marital Status | Single | + + + | Congregation Affiliation | 1041 | + + + | Race | Unknown | + + + | Ethnic Group | Unknown | + + + Author + + + | Author | [facility] | | | and [place] | + + + | Organization | [facility] | | | and [place] | + + + | Address | Unknown | + + + | Phone | Unavailable | + + + Support + + + + + | Name | Relationship | Address | Phone | + + + + + | Chilo Webber | DIVYA | [place] | | | | | [address] | | + + + + + Care Team Providers + +------+ + | Care Childcare Provider Name | Role | Phone | + [...] | | | | | | | [address] | | + +--------+ + + + [...] | | | | | | | [place] | | | | | | | [address] | | + +--------+ + + + [...] Danie COSME | | | | | [phone] | [place] [address] | | +--------+ + + + + [...] W | | | | | | [place], | | | | | | [place] [address] | | | | | | [phone] | | | | | | | | +--------+---------+ + + + as of this encounter Results ECHO Complete (09/16/2015 0850) + + + | Specimen | Performing Laboratory | + + + | | [facility] | + + + + + | Narrative | + + | External films for comparison only - no result from [facility]. | + + ECHO Complete (04/19/2015 0910) + + + | Specimen | Performing Laboratory | + + + | | [facility] | + + + + + | Narrative | + + | External films for comparison only - no result from [facility]. | + + in this encounter Visit Diagnoses Not on filein this encounter"
--- OUTSIDE RECORDS SUMMARY | ~2017-10-14 | XMS | Clinical Summary ---
Demographics + + + | Address | [address] | | | [place] [address] | + + + | Home Phone | | + + + | Preferred Language | Unknown | + + + | Marital Status | Single | + + + | Adventism Affiliation | Unknown | + + + [...] Team Providers + +------+ + | Care Bingo Caller Name | Role | Phone | + +------+ + PP | Unavailable | + +------+ + Source Comments BJ is fully [facility] both [facility] and [facility] InPatient.[facility] Allergies Not on File Current Medications Not [...]
--- OUTSIDE RECORDS SUMMARY | ~2017-10-14 | XMS | Clinical Summary ---
Demographics + + + | Address | [address] | | | [place] [address] | + + + | Home Phone | | + + + | Preferred Language | Unknown | + + + | Marital Status | Single | + + + | Restorationism Affiliation | 1041 | + + + | Race | Unknown | + + + | Ethnic Group | Unknown | + + + Author + + + | Author | [facility] | + + + | Organization | [facility] | + + + | Address | Unknown | + + + | Phone | Unavailable | + + + Support + + +---------+ + | Name | Relationship | Address | Phone | + + +---------+ + | Chilo Estes | ECON | Unknown | | + + +---------+ + Care Team Providers + +------+ + | Care Ceramics Artist Name | Role | Phone | + [...] | | | Activ | | (DRISDOL) [address] | mouth once a week. | | [...] | | | | Activ | | dcsmzjg-P-qphxl acid | mouth daily with | | [...] | + + + | Non-ST elevation [place] (NSTEMI) | 04/18/2015 | + + + [...] | xxxxxxxxxx | | | [address] | | | RE | | | | [place] [address] | | | IP-OP | | | | | + +--------+ +------+-------+ + | MEDICAID | MEDICA | xxxxxxxx | | | [address] | | | ID | | | | [place], [place] | | | [place] | | | | [address] | + +--------+ +------+-------+ + | [facility] | YELLOW | xxxxxxxxx | | [...] | Self | [birth year] | Home: | [address] | | | al/[place]ud[place] | | 1945 | [phone] | [place] | | | [place] | | | [phone] | [address] | + +--------+ +--------+ + +
--- OUTSIDE RECORDS SUMMARY | ~2017-10-14 | XMS | Clinical Summary ---
Demographics + + + | Address | [address] | | | [place] [address] | + + + | Home Phone | | + + + | Preferred Language | Unknown | + + + | Marital Status | Single | + + + | Presybeterian Affiliation | Unknown | + + + [...] Team Providers + +------+ + | Care Lithographic Proofer Apprentice Name | Role | Phone | + +------+ + PP | Unavailable | + +------+ + Source Comments BJ [facility] fully [facility] and [facility] InPatient.[facility] Allergies Not on File Current Medications Not [...]
[~2017-10-14 11:58] MED LIST changes: +CEPHALEXIN500 MG PO
--- NOTE | 2017-10-14 22:50 | EKG ---
[facility] [address] [facility] [place] [address] Signed Normal sinus rhythm Left ventricular hypertrophy with QRS widening ST \T\ T wave abnormality, consider inferolateral ischemia Abnormal ECG When compared with ECG of 14-OCT-2017 11:59, (Unconfirmed) Sinus rhythm has replaced Atrial fibrillation T wave inversion less evident in Inferior leads Confirmed by CRISTIAN REAVES MD ([id number]) on 10/14/2017 10:50:38 PM Electronically Signed By: CRISTIAN REAVES MD 10/14/17 2250 PATIENT NAME: UDAY ESTES Electrocardiogram DATE OF : 49 PHYSICIAN: CRISTIAN REAVES MD REPORT #: [id number] REPORT IS CONFIDENTIAL AND NOT TO BE RELEASED WITHOUT AUTHORIZATION
--- NOTE | 2017-10-14 22:50 | EKG ---
[facility] [address] [facility] [place], [place] [address] Signed Atrial fibrillation with rapid ventricular response Nonspecific intraventricular block Marked ST abnormality, possible anterior subendocardial injury Abnormal ECG No previous ECGs available Confirmed by CRISTIAN REAVES MD ([id number]) on 10/14/2017 10:50:03 PM Electronically Signed By: CRISTIAN REAVES MD 10/14/17 2250 PATIENT NAME: MEERAUDAY MOISE Electrocardiogram DATE OF : 49 PHYSICIAN: CRISTIAN REAVES MD REPORT #: [id number] REPORT IS CONFIDENTIAL AND NOT TO BE RELEASED WITHOUT AUTHORIZATION
== END 2017-10-14 15:04 | disposition home or self-care (01) ==
LOC: ED 11:58
DX: R07.9 Chest pain, unspecified (principal); E11.22 Type 2 diabetes mellitus with diabetic chronic kidney disease; E11.40 Type 2 diabetes mellitus with diabetic neuropathy, unspecified; I50.9 Heart failure, unspecified; I25.10 Atherosclerotic heart disease of native coronary artery without angina pectoris; N18.9 Chronic kidney disease, unspecified; Z88.8 Allergy status to other drugs, medicaments and biological substances; Z79.899 Other long term (current) drug therapy; Z79.82 Long term (current) use of aspirin; Z99.2 Dependence on renal dialysis
CPT/HCPCS: 71045; 80053; 84484; 85025; 93005; 93010; 96374; 99284

== ENCOUNTER 2019-09-10 08:41 | Emergency (ER) | payer MEDICARE, OTHER ==
[~2019-09-10] VITALS: Ht 170.2 cm; Wt 111.1 kg
--- OUTSIDE RECORDS SUMMARY | 2019-09-10 08:44 | XMS ---
PreManage Notification: UDAY ESTES Security Pasta Maker Events No recent Security Events currently on file CRITERIA MET - [facility] C[facility] PROVIDERS ALEX RUTH Internal Medicine Current PHONE: [phone] lAex Newman Current PHONE: [phone] César has no Care Guidelines for this patient. Geetha VISIT COUNT (12 MO.) 3 Sara Liu TOTAL 4 NOTE: Visits indicate total known visits. ED/UCC VISIT TRACKING (12 MO.) 09/10/2019 08:42 [facility] [place] TYPE: Emergency COMPLAINT: - SOB, VOMITING [facility] DIAGNOSES: - Other shock - Rectal Bleed - Gastrointestinal hemorrhage, unspecified [facility]14[facility]2019 09[facility] DIAGNOSES: - Hip Injury - Nondisplaced oblique fracture of shaft of left femur, init - Fall - Unspecified fall, initial encounter - 1 Type 2 diabetes mellitus w [facility] diabetic kidney complication 01/11/2019 11:22 [facility] [place] TYPE: Emergency DIAGNOSES: - Elevated blood-pressure reading, w/o diagnosis of htn - End stage renal disease - Urinary Retention - Dependence on renal dialysis - diff urinating,dizzy, sent by - Dizziness and giddiness INPATIENT VISIT TRACKING (12 MO.) [facility]2019 10[facility] [place] [facility]: Critical [facility] DIAGNOSES: - Localized edema - End stage renal disease - Hypovolemia - Ulcer of anus and rectum - Lower GIB - Oth personal risk factors, not elsewhere classified - Anemia in chronic kidney disease - Essential (primary) hypertension - Acute posthemorrhagic anemia - Other disorders of phosphorus metabolism - Oth disorders of plasma-protein metabolism, NEC - Gastrointestinal hemorrhage, unspecified - Other hypotension 06/14/2019 09:42 [facility] [place] TYPE: Surgical Services DIAGNOSES: - Unspecified fall, initial encounter - Gastrointestinal hemorrhage, unspecified - Dependence on renal dialysis - Other specified postprocedural states - Nondisplaced oblique fracture of shaft of left femur, init - Melena - Gastro-esophageal reflux disease with esophagitis - Anemia in chronic kidney disease - Encephalopathy, unspecified - 1 Type 2 diabetes mellitus w [facility] diabetic kidney complication - Personal history of (healed) traumatic fracture - 1 Type 2 diabetes mellitus with diabetic nephropathy - End stage renal disease [email or web address]
--- NOTE | 2019-09-10 15:05 | EKG ---
[facility] [address] [facility] [place] [address] Signed Atrial fibrillation with rapid ventricular response Left bundle branch block Abnormal ECG Confirmed by ISELA AVILES MD ([id number]) on 09/10/2019 3:05:11 PM Electronically Signed By: ISELA AVILES MD 09/10/19 1505 PATIENT NAME: UDAY ESTES Electrocardiogram DATE OF : 49 PHYSICIAN: ISELA AVILES MD REPORT #: [id number] REPORT IS CONFIDENTIAL AND NOT TO BE RELEASED WITHOUT AUTHORIZATION
== END 2019-09-10 12:30 | disposition short-term general hospital (02) ==
LOC: ED 08:41
DX: R07.9 Chest pain, unspecified (principal); N18.9 Chronic kidney disease, unspecified; E86.0 Dehydration; Z99.2 Dependence on renal dialysis; E11.40 Type 2 diabetes mellitus with diabetic neuropathy, unspecified; I50.9 Heart failure, unspecified; Z88.8 Allergy status to other drugs, medicaments and biological substances; Z79.899 Other long term (current) drug therapy; Z79.82 Long term (current) use of aspirin
CPT/HCPCS: 71045; 80053; 83605; 83880; 84484; 85025; 93005; 93010; 96361; 96374; 96375; 99285-25; C9113; J2405; J7030

== ENCOUNTER 2020-03-23 02:21 | Emergency (ER) | payer MEDICARE, OTHER ==
[~2020-03-23] VITALS: Ht 170.2 cm; Wt 99.8 kg
[2020-03-23] MEDS ORDERED: NORCO 5-325 TA1 EACH PO (02:57)
== END 2020-03-23 03:19 | disposition home or self-care (01) ==
LOC: ED 02:21
DX: S42.032A Displaced fracture of lateral end of left clavicle, initial encounter for closed fracture (principal); W06.XXXA Fall from bed, initial encounter; E11.22 Type 2 diabetes mellitus with diabetic chronic kidney disease; N18.9 Chronic kidney disease, unspecified; I50.9 Heart failure, unspecified; E11.40 Type 2 diabetes mellitus with diabetic neuropathy, unspecified; E11.319 Type 2 diabetes mellitus with unspecified diabetic retinopathy without macular edema; I25.10 Atherosclerotic heart disease of native coronary artery without angina pectoris; Z79.899 Other long term (current) drug therapy; Z88.8 Allergy status to other drugs, medicaments and biological substances; Z79.82 Long term (current) use of aspirin
CPT/HCPCS: 73000; 99283-25

== ENCOUNTER 2020-07-16 14:23 | Emergency (ER) | payer MEDICARE, OTHER ==
[~2020-07-16] VITALS: Ht 170.2 cm; Wt 99.8 kg
--- NOTE | 2020-07-16 20:42 | EKG ---
[facility] [address] [facility] [place] [address] Signed Normal sinus rhythm Nonspecific intraventricular conduction delay T wave abnormality, consider lateral ischemia Abnormal ECG When compared with ECG of 10-SEP-2019 08:52, Sinus rhythm has replaced Atrial fibrillation Vent. rate has decreased BY 56 BPM T wave inversion no longer evident in Inferior leads T wave inversion less evident in Lateral leads Confirmed by JOEL AMBRIZ DO ([id number]) on 07/16/2020 8:42:37 PM Electronically Signed By: JOEL AMBRIZ DO 07/16/202041 PATIENT NAME: UDAY ESTES Electrocardiogram DATE OF : 49 PHYSICIAN: JOEL AMBRIZ DO REPORT #: [id number] REPORT IS CONFIDENTIAL AND NOT TO BE RELEASED WITHOUT AUTHORIZATION
== END 2020-07-16 18:57 | disposition short-term general hospital (02) ==
LOC: ED 14:23
DX: I20.0 Unstable angina (principal); E11.22 Type 2 diabetes mellitus with diabetic chronic kidney disease; Z20.822 Contact with and (suspected) exposure to COVID-19; I50.9 Heart failure, unspecified; N18.9 Chronic kidney disease, unspecified; Z99.2 Dependence on renal dialysis; E11.40 Type 2 diabetes mellitus with diabetic neuropathy, unspecified; Z87.891 Personal history of nicotine dependence; E11.319 Type 2 diabetes mellitus with unspecified diabetic retinopathy without macular edema; Z88.8 Allergy status to other drugs, medicaments and biological substances; Z79.899 Other long term (current) drug therapy; Z79.82 Long term (current) use of aspirin
CPT/HCPCS: 71045; 72040; 80053; 84484; 85025; 93005; 93010; 96374; 99285-25; C9803; J1644; U0003

== ENCOUNTER 2020-09-22 12:07 | Emergency (ER) | payer MEDICARE, OTHER ==
[~2020-09-22] VITALS: Ht 170.2 cm; Wt 99.8 kg
--- NOTE | 2020-09-22 22:43 | EKG ---
[facility] [address] [facility] [place] [address] Signed Normal sinus rhythm Nonspecific intraventricular block T wave abnormality, consider lateral ischemia Abnormal ECG When compared with ECG of 16-JUL-2020 14:43, T wave amplitude has decreased in Inferior leads T wave inversion more evident in Lateral leads Confirmed by CRISTIAN REAVES MD ([id number]) on 09/22/2020 10:42:56 PM Electronically Signed By: CRISTIAN REAVES MD 09/22/20 2243 PATIENT NAME: MEERAUDAY [place] Electrocardiogram DATE OF : [birth year] PHYSICIAN: CRISTIAN REAVES MD REPORT #: [id number] REPORT IS CONFIDENTIAL AND NOT TO BE RELEASED WITHOUT AUTHORIZATION
== END 2020-09-22 18:10 | disposition short-term general hospital (02) ==
LOC: ED 12:07
DX: I25.10 Atherosclerotic heart disease of native coronary artery without angina pectoris (principal); R68.84 Jaw pain; E11.22 Type 2 diabetes mellitus with diabetic chronic kidney disease; I50.9 Heart failure, unspecified; N18.9 Chronic kidney disease, unspecified; E11.40 Type 2 diabetes mellitus with diabetic neuropathy, unspecified; Z87.891 Personal history of nicotine dependence; Z88.8 Allergy status to other drugs, medicaments and biological substances; Z79.899 Other long term (current) drug therapy; Z79.82 Long term (current) use of aspirin
CPT/HCPCS: 71045; 80053; 83735; 83880; 84484; 85025; 85610; 93005; 93010; 99285-25; U0003